=== PATIENT | male | born 1945 | race Caucasian/White ===

== ENCOUNTER → 2017-02-17 | Outpatient (CLI) | payer OTHER, MEDICARE ==
--- NOTE | 2017-02-17 13:18 | DIAGNOSTIC IMAGING REPORT ---
ULTRASOUND KIDNEYS AND BLADDER CLINICAL HISTORY: Renal cyst. COMPARISON STUDY: KUB dated 02/14/2016. TECHNIQUE: Real-time, grayscale, and color flow sonography of the kidneys and bladder is performed. Images are reviewed in the transverse and longitudinal planes. FINDINGS: Kidneys: The kidneys there is remarkable cortical atrophy. The right kidney measures 14.1 x 7.3 x 7.0 cm and the left kidney measures 13.3 x 7.4 x 7.5 cm. There is no hydronephrosis. No shadowing renal calculi are identified. There are numerous bilateral renal cysts. The largest on the left measures up to 2.7 cm. The largest on the right measures up to 3.3 cm. A lower pole cyst on the right measures up to 2.2 cm and contains a small internal calcification. There is no sonographic evidence of solid mass lesion. No perinephric fluid is identified. Bladder: The prostate gland is enlarged and heterogeneous. There is median lobe hypertrophy. The bladder is largely decompressed. The bladder wall appears thickened and trabeculated suggesting chronic outlet obstruction. Bilateral ureteral jets were seen. IMPRESSION: 1. The kidneys demonstrate mild cortical atrophy and are without hydronephrosis. 2. Bilateral renal cysts as above. 3. Prostatomegaly with evidence of chronic bladder outlet obstruction. Electronically signed by: Sebastián Tsang M.D. 02/17/2017 1:17 PM Dictated Date/Time: 02/17/2017 1:14 PM
[2017-02-17 17:10] LABS: BLOOD UREA NITROGEN 13 mg/dl (7-18); CREATININE 0.83 mg/dl (0.60-1.40)
== END | disposition home or self-care (01) ==
LOC: C.ULTR 12:07
PROVIDERS: ATTEND Urology
DX: N28.1 Cyst of kidney, acquired (principal); N40.0 Benign prostatic hyperplasia without lower urinary tract symptoms

== ENCOUNTER 2022-04-05 15:38 | Inpatient (IN) ==
[2022-04-05] MEDS ORDERED: SODIUM CHLORIDE 0.9% 1000ML 1,000 ML IV ONE (15:47)
[2022-04-05 16:34] LABS: Basophils # (auto) 0.04 K/uL (0-0.2); Basophils % (auto) 0.5 %; Eosinophils # (auto) 0.06 K/uL (0-0.50); Eosinophils % (auto) 0.7 %; Hematocrit (blood only) 38.4 % (42.0-52.0); Hemoglobin 13.1 g/dl (14.0-18.0); Immature Granulocytes # (auto) 0.04 K/uL (0.01-0.20); Immature Granulocytes % (auto) 0.5 %; Lymphocytes # (auto) 0.45 K/uL (1.2-3.4); Lymphocytes % (auto) 5.6 %; Mean Corpuscular Hemoglobin 32.1 pg (25.0-34.0); Mean Corpuscular Hgb Conc 34.1 g/dL (32.0-36.0); Mean Corpuscular Volume 94.1 fL (80.0-100.0); Mean Platelet Volume 10.3 fL (9.4-12.4); Monocytes # (auto) 0.73 K/uL (0.11-0.59); Neutrophils # (auto) 6.75 K/uL (1.40-6.50); Neutrophils % (auto) 83.7 %; Platelet Count 209 K/uL (130-400); RDW Coefficient of Variation 15.8 % (11.5-14.5); RDW Standard Deviation 54.3 fL (36.4-46.3); Red Blood Count 4.08 M/uL (4.70-6.10); White Blood Count 8.07 K/ul (4.8-10.8)
[2022-04-05 16:48] LABS: BUN Creatinine Ratio 23.1 (10-20); Bilirubin Direct 9.5 mg/dl (0-0.2); Bilirubin,Total 16.2 mg/dl (0.2-1.0); Calcium 9.7 mg/dl (8.5-10.1); Creatinine Clr Calc Pharmacy 67.4 ml/min; Est GFR (Non-African American) 69.9 ml/min; Globulin 3.9 gm/dl (2.5-4.0); Magnesium 1.8 mg/dl (1.7-2.4); Potassium 3.9 mmol/L (3.5-5.1); Total Protein 7.9 gm/dl (6.0-8.3)
[2022-04-05] MEDS ORDERED: ONDANSETRON INJ 2 MG/ML 2 ML VIAL IV STA (16:53)
[2022-04-05] MEDS ORDERED: FAMOTIDINE 20MG IV PUSH 20 MG/5 ML SYR IV STA (16:53)
[2022-04-05 16:58] LABS: INR 1.2 (0.9-1.1); Prothrombin Time 12.4 Seconds (9.0-12.0)
--- NOTE | 2022-04-05 17:20 | CT Scan Report ---
CT KUB medical assistant dermatology CLINICAL HISTORY: Pancreatic cancer, Jaundice ?stent/duct obstruction COMPARISON STUDY: CT of the abdomen and pelvis July 17, 2021. FINDINGS: A large amount of barium within the colon and rectum is noted. Streak artifact from this ba rium would significantly compromise visualization of the abdomen and pelvis. A CT of the abdomen and pelvis could be obtained in several days once the barium has passed. No evidence for a bowel obstruct ion. IMPRESSION: Large amount of residual barium within the colon and rectum from upper GI performed yeste rday. CT in several days once the barium has passed could be obtained. ACT 112: Negative or not required by law. Electronically signed by: Guilherme Sanchez M.D. 04/05/2022 5:17 PM
--- NOTE | 2022-04-05 20:56 | Emergency Department Note ---
Impression & Plan Pancreatic cancer, Jaundice, Transaminitis ED Provider Note NAME: YOVANY MERCEDES AGE: 76 SEX: M ARRIVES VIA: Walk-In INFORMANT: Patient ED PROVIDER(S): Toño Gardner MD CHIEF COMPLAINT: Pancreatic cancer, jaundice, referred. PLAN: Disposition: Admit MEDICAL DECISION MAKING: The patient is a pleasant 76-year-old gentleman with a past medical history of pancreatic cancer with history of biliary stent per his report who presents to the emergency department referred by his [facility] oncology office for evaluation of biliary obstruction after developing jaundice over the past several days. He denies any fevers, chills, cough, congestion. He reports inte rmittent nausea but denies vomiting. Per records, the patient is not currently receiving treatment for the past several months. Moreover if the patient were to decline then hospice/palliative care would be considered. On arrival the patient is fatigued appearing but no acute distress, afebrile wi th stable vital signs. He appears clinically dry. He is overtly jaundiced. Abdomen is nontender. WBC and platelets within normal limits. H/H 13.1/38.4 improved from prior. INR 1.2. Chemistry without metabolic acidosis. Total bilirubin 16.2 with direct bilirubin 9.5, AST 228, ALT 196 and alk phos 800 all elevated from prior values from 2020 without more recent values for comparison. Lipase is unable to be resulted due to icterus. COVID-19 RNA, ERIK test was negative. CT of the abdomen pelvis was ordered initially for evaluation however due to residual barium from recent [facility], [facility] was unable to be performed. Gallbladder ultrasound subsequently ordered and per preliminary [facility] report demonstrates CBD dilated to 17 mm. Portal vein is patent. Case was discussed with GI on-call, Dr. Richardson. Reviewed recommendations and agrees patient may be admitted here for further management at this time. Recommends prophylactic antibiotics. Patient agrees with plan for admission. Case was discussed with Dr. Hickey, [facility] hospitalist who will evaluate the patient for admission. Luis Enrique ordered. Triage Nursing notes reviewed and agree them. Prior/outside medical records reviewed Vital Signs: reviewed Differential diagnosis: Appendicitis, testicular torsion, infections, diverticulitis, UTI, obstruction, mesenteric ischemia, aortic pathology, inflammatory bowel disease, renal colic, PUD, pancreatitis, biliary pathology, hernia, volvulus, constipation, as well as other pathologies. ER treatment provided: See below. Diagnostics interpreted by me: ECG: Sinus rhythm with first-degree AV block, 85 bpm, no ectopy, no overt ST elevation depression, QTc 442, QRS 80 Cardiac Monitoring: An order for continuous cardiac monitoring was placed and demonstrated Sinus rhythm with first-degree AV block, 85 bpm, no ectopy. Laboratory studies: See below Imaging studies: See below Consultation(s): GI on-call, Dr. Richardson. Dr. Hickey, [facility] hospitalist. HPI: The patient is a pleasant 76-year-old gentleman with a past medical history of pancreatic cancer with history of biliary stent per his report who presents to the emergency department referred by his [facility] oncology office for marianna luation of biliary obstruction after developing jaundice over the past several days. He denies any fevers, chills, cough, congestion. He reports intermittent nausea but denies vomiting. Per records, the patient is not currently receiving treatment for the past several months. Moreover if the patient were to decline then hospice/palliative care would be considered ROS: See above HPI for pertinent positives & negatives. A total of 10 systems reviewed and were otherwise negative. VITALS:See Below PHYSICAL EXAMINATION: GENERAL: Awake, alert, fatigued-appearing, in no distress HENT: Normocephalic, atraumatic. Oropharynx with dry mucous membranes and otherwise unremarkable. EYES: Normal conjunctiva. Sclera are icteric. NECK: Supple. No nuchal rigidity. FROM. No JVD. RESPIRATORY: Clear to auscultation. CARDIAC: Regular rate, normal rhythm. Extremities warm and well perfused. Pulses equal. ABDOMEN: Soft, non-distended. No tenderness to palpation. No rebound or guarding. No masses. RECTAL: Deferred. MUSCULOSKELETAL: Chest examination reveals no tenderness. The back is symmetrical on inspection without obvious abnormality. There is no CVA tenderness to palpation. No joint edema. LOWER EXTREMITIES: Calves are equal size bilaterally and non-tender. No edema. No discoloration. NEURO: Normal sensorium. No sensory or motor deficits noted. SKIN: Moderate-severe jaundice noted. Toño Gardner MD Past Med/Surg History Medical History Anxiety Arthritis Arthritis BPH (benign prostatic hyperplasia) Bronchitis resolved CAD (coronary artery disease) follows Dr. Bian[facility]. S/P failed 2017 stress test with subsequent cardiac cath showing multi-vessel dz 20-50% stenosis with no intervention performed. Medically managed, baseline CCS class II. Chronic obstructive pulmonary disease doesnt use res inh Cyst of kidney, acquired Edema wears compression stockings daily Exposure to Agent [place] in service Gastric ulcer GERD (gastroesophageal reflux disease) hx Hearing loss Heart trouble Hyperlipidemia Hypertension Kidney stones passed on own Lung nodules Pancreatic cancer dx 2020, now for access port for chemo. Post traumatic stress disorder PSVT (paroxysmal supraventricular tachycardia) Long runs of SVT noted on Holter monitor 03/19/2020. Patient reports continued palpitations at 04/13/2020 cardio visit. Lopressor dose increased from 12.5 mg twice daily to 25 mg twice daily. Sleep apnea 02 2 LPM at HS Surgical History History of arthroscopy left knee History of cardiac cath x2 last one 2016 [facility], no stents History of cataract surgery bilat History of colonoscopy with polypectomy History of esophagogastroduodenoscopy (EGD) History of hand surgery right index finger History of incision and drainage to abdominal wound after appendectomy History of mandibular surgery History of tooth extraction Hx of abdominal surgery for possible cancer, was benign Hx of appendectomy Hx of cholecystectomy Hx of vascular surgery varicose veins bilat lower legs Family History Father Cardiac disorder Diabetes Mother Hypertension Skin cancer Diabetes Social History Smoking Status: Former smoker Tobacco Type: Cigarettes Second Hand Exposure: Yes; Hx Alcohol Use: No Hx Substance Use: No Preferred Language: Singaporean Communication Ability: Effective Dental Assistant Medical Assistant Required: No Beliefs That Will Affect Care: None marital status: Current Living Situation: Spouse current occupational status: retired Feels Safe at Home: Yes Safety Concerns: Feels Safe At This Time Assistive Devices: Cane, Glasses and Hearing Aid - Bilateral Allergies Allergies Allergy/AdvReac Type Severity Reaction Status Date / Time aspirin Allergy Unknown stomach Verified 04/05/22 21:25 upset erythromycin base Allergy Unknown upset Verified 04/05/22 21:25 stomach Home Meds Home Medications Medication Instructions Recorded Confirmed buspirone 5 mg tablet 7.5 mg PO BID 04/05/22 04/05/22 doxycycline hyclate 100 mg tablet 100 mg PO BID 04/05/22 04/05/22 famotidine 40 mg tablet 40 mg PO BID 04/05/22 04/05/22 finasteride 5 mg tablet 5 mg PO DAILY 04/05/22 04/05/22 folic acid 800 mcg tablet 800 mcg PO DAILY 04/05/22 04/05/22 isosorbide mononitrate 10 mg tablet 30 mg PO QAM 04/05/22 04/05/22 metformin 500 mg tablet 500 mg PO BID 04/05/22 04/05/22 oxycodone 5 mg tablet 5 mg PO Q4 PRN Pain 04/05/22 04/05/22 pantoprazole 40 mg tablet,delayed 40 mg PO BID 04/05/22 04/05/22 release polyethylene glycol 3350 17 17 g PO HS 04/05/22 04/05/22 gram/dose oral powder tamsulosin 0.4 mg capsule (Flomax) 0.4 mg PO DAILY 04/05/22 04/05/22 Results & Data (ED) Vital Signs Vital Signs - 24 hr 04/05/22 15:40 04/05/22 16:09 04/05/22 17:21 Temperature 36.8 C Temperature Source Skin Pulse Rate 99 H 86 Pulse Rate [Apical] 79 Respiratory Rate 20 20 Respiratory Effort / Characteristics Non-Labored Spontaneous Non-Labored Spontaneous Respiratory Depth Normal Normal Respiratory Pattern Regular Blood Pressure 95/63 L Blood Pressure [Right Arm] 141/86 H Blood Pressure Mean 73 Blood Pressure Mean [Right Arm] 104 Blood Pressure Position [Right Arm] Lying Pulse Oximetry 95 94 Oxygen Delivery Method Room Air Room Air Sepsis Recent Fever Within 48 Hours No Sepsis New/Unexplained Change in Mental Status N/A Sepsis Action Taken by Nursing No Action Required 04/05/22 18:00 04/05/22 19:55 04/05/22 20:21 Temperature Temperature Source Pulse Rate Pulse Rate [Apical] 78 87 Respiratory Rate 21 18 Respiratory Effort / Characteristics Non-Labored Spontaneous Respiratory Depth Normal Respiratory Pattern Regular Blood Pressure Blood Pressure [Right Arm] 125/70 92/59 L Blood Pressure Mean Blood Pressure Mean [Right Arm] 88 70 Blood Pressure Position [Right Arm] Lying Pulse Oximetry 94 95 Oxygen Delivery Method Room Air Room Air Room Air Sepsis Recent Fever Within 48 Hours Sepsis New/Unexplained Change in Mental Status Sepsis Action Taken by Nursing 04/05/22 22:00 Temperature Temperature Source Pulse Rate Pulse Rate [Apical] 86 Respiratory Rate 16 Respiratory Effort / Characteristics Respiratory Depth Respiratory Pattern Blood Pressure Blood Pressure [Right Arm] 102/64 Blood Pressure Mean Blood Pressure Mean [Right Arm] 76 Blood Pressure Position [Right Arm] Pulse Oximetry 95 Oxygen Delivery Method Room Air Sepsis Recent Fever Within 48 Hours Sepsis New/Unexplained Change in Mental Status Sepsis Action Taken by Nursing Laboratory Data Attestation: I reviewed the patient's lab results. 04/05/22 16:07 04/05/22 16:07 Lab Results 04/05/22 04/05/22 04/05/22 Range/Units 16:07 16:07 16:07 WBC 8.07 (4.8-10.8) K/ul RBC 4.08 L (4.70-6.10) M/uL Hgb 13.1 L (14.0-18.0) g/dl Hct 38.4 L (42.0-52.0) % MCV 94.1 (80.0-100.0) fL MCH 32.1 (25.0-34.0) pg MCHC 34.1 (32.0-36.0) g/dL RDW Std Deviation 54.3 H (36.4-46.3) fL RDW Coeff of Dave 15.8 H (11.5-14.5) % Plt Count 209 (130-400) K/uL MPV 10.3 (9.4-12.4) fL Immature Gran % (Auto) 0.5 % Neut % (Auto) 83.7 % Lymph % (Auto) 5.6 % Kern % (Auto) 9.0 % Eos % (Auto) 0.7 % Baso % (Auto) 0.5 % Neut # (Auto) 6.75 H (1.40-6.50) K/uL Lymph # (Auto) 0.45 L (1.2-3.4) K/uL Kern # (Auto) 0.73 H (0.11-0.59) K/uL Eos # (Auto) 0.06 (0-0.50) K/uL Baso # (Auto) 0.04 (0-0.2) K/uL Immature Gran # (Auto) 0.04 (0.01-0.20) K/uL PT 12.4 H (9.0-12.0) Seconds INR 1.2 H (0.9-1.1) Sodium 135 L (136-145) mmol/L Potassium 3.9 (3.5-5.1) mmol/L Chloride 99 (98-107) mmol/L Carbon Dioxide 28 (21-32) mmol/L Anion Gap 8 (3-11) BUN 24 H (6-23) mg/dl Creatinine 1.04 (0.6-1.4) mg/dl Est Cr Clr Drug Dosing 67.4 ml/min Est GFR ( Amer) 81.0 ml/min Est GFR (Non-Af Amer) 69.9 ml/min BUN/Creatinine Ratio 23.1 H (10-20) Glucose 142 H (70-99(Fasting)) mg/dl Calcium 9.7 (8.5-10.1) mg/dl Magnesium 1.8 (1.7-2.4) mg/dl Total Bilirubin 16.2 H (0.2-1.0) mg/dl Direct Bilirubin 9.5 H (0-0.2) mg/dl AST 220 H (13-39) U/L ALT 196 H (7-52) U/L Alkaline Phosphatase 803 H (34-104) U/L Total Protein 7.9 (6.0-8.3) gm/dl Albumin 4.0 (3.4-5.0) gm/dl Globulin 3.9 (2.5-4.0) gm/dl Albumin/Globulin Ratio 1.0 (0.9-2) Lipase (11-82) U/L SARS-CoV-2, RNA, NAAT (NEGATIVE) 04/05/22 Range/Units Unknown WBC (4.8-10.8) K/ul RBC (4.70-6.10) M/uL Hgb (14.0-18.0) g/dl Hct (42.0-52.0) % MCV (80.0-100.0) fL MCH (25.0-34.0) pg MCHC (32.0-36.0) g/dL RDW Std Deviation (36.4-46.3) fL RDW Coeff of Dave (11.5-14.5) % Plt Count (130-400) K/uL MPV (9.4-12.4) fL Immature Gran % (Auto) % Neut % (Auto) % Lymph % (Auto) % Kern % (Auto) % Eos % (Auto) % Baso % (Auto) % Neut # (Auto) (1.40-6.50) K/uL Lymph # (Auto) (1.2-3.4) K/uL Kern # (Auto) (0.11-0.59) K/uL Eos # (Auto) (0-0.50) K/uL Baso # (Auto) (0-0.2) K/uL Immature Gran # (Auto) (0.01-0.20) K/uL PT (9.0-12.0) Seconds INR (0.9-1.1) Sodium (136-145) mmol/L Potassium (3.5-5.1) mmol/L Chloride (98-107) mmol/L Carbon Dioxide (21-32) mmol/L Anion Gap (3-11) BUN (6-23) mg/dl Creatinine (0.6-1.4) mg/dl Est Cr Clr Drug Dosing ml/min Est GFR ( Amer) ml/min Est GFR (Non-Af Amer) ml/min BUN/Creatinine Ratio (10-20) Glucose (70-99(Fasting)) mg/dl Calcium (8.5-10.1) mg/dl Magnesium (1.7-2.4) mg/dl Total Bilirubin (0.2-1.0) mg/dl Direct Bilirubin (0-0.2) mg/dl AST (13-39) U/L ALT (7-52) U/L Alkaline Phosphatase (34-104) U/L Total Protein (6.0-8.3) gm/dl Albumin (3.4-5.0) gm/dl Globulin (2.5-4.0) gm/dl Albumin/Globulin Ratio (0.9-2) Lipase (11-82) U/L SARS-CoV-2, RNA, NAAT NEGATIVE (NEGATIVE) Administered Medications Sodium Chloride (Nss 1000ml) 1,000 mls @ 200 mls/hr IV .Q5H ONE Stop: 04/06/22 05:15 Last Admin: 04/06/22 01:35 Dose: 200 mls/hr Documented By: Vancomycin HCl 1,750 mg/ (Sodium Chloride) 535 mls @ 200 mls/hr IV NOW ONE; Protocol Stop: 04/06/22 05:10 Last Admin: 04/06/22 03:04 Dose: 200 mls/hr Documented By: Insulin Aspart (Insulin Aspart Per Unit) 0 units SC ACHS CINDA Stop: 05/06/22 01:30 Last Admin: 04/06/22 01:46 Dose: Not Given Documented By: Oxycodone HCl (Oxycodone Hcl Ir 5 Mg Tab (Immediate Release)) 5 - 10 mg PO QID PRN PRN Reason: Pain Stop: 04/20/22 00:15 Last Admin: 04/06/22 02:05 Dose: 5 mg Documented By: Discontinued Medications Sodium Chloride (Nss 1000ml) 1,000 mls @ 999 mls/hr IV .Q1H1M ONE Stop: 04/05/22 16:47 Last Infusion: 04/05/22 17:52 Dose: 0 mls/hr Documented By: Admin: 04/05/22 16:33 Dose: 999 mls/hr Documented By: KULDEEP Famotidine (Pepcid 20mg Iv Push) 20 mg in 5 mls @ 2.5 mls/min IV NOW STA Stop: 04/05/22 16:54 Last Admin: 04/05/22 17:27 Dose: 2.5 mls/min Documented By: KULDEEP Piperacillin Sod/Tazobactam Sod (Zosyn) 4.5 gm in 120 mls @ 240 mls/hr IV NOW ONE Stop: 04/05/22 23:46 Last Infusion: 04/06/22 01:03 Dose: 0 mls/hr Documented By: Infusion: 04/06/22 00:16 Dose: 240 mls/hr Documented By: Infusion: 04/05/22 23:33 Dose: 0 mls/hr Documented By: Admin: 04/05/22 23:32 Dose: 240 mls/hr Documented By: NOEL Ondansetron HCl (Ondansetron Inj 2 Mg/Ml 2 Ml Vial) 4 mg IV NOW STA Stop: 04/05/22 16:54 Last Admin: 02/25/23 17:26 Dose: Not Given Documented By: BEZ Imaging Data Radiologist's Impression: [place] Operator Film 04/05/22 16:53 CT KUB field interviewer CLINICAL HISTORY: Pancreatic cancer, Jaundice ?stent/duct obstruction COMPARISON STUDY: CT of the abdomen and pelvis July 17, 2021. FINDINGS: A large amount of barium within the colon and rectum is noted. Streak artifact from this barium would significantly compromise visualization of the abdomen and pelvis. A CT of the abdomen and pelvis could be obtained in several days once the barium has passed. No evidence for a bowel obstruction. IMPRESSION: Large amount of residual barium within the colon and rectum from upper GI performed yesterday. CT in several days once the barium has passed could be obtained. ACT 112: Negative or not required by law. Electronically signed by: Guilherme Sanchez M.D. 04/05/2022 5:17 PM [facility] US GALLBLADDER: Comparison: None. The pancreas is not very well seen. Questionable complex structure measuring 4.3 x 3.9 x 3.4 cm near the pancreatic head. This correlates with known history of pancreatic carcinoma. The liver measures 19 cm, unremarkable. Normal hepatopedal flow through the portal vein. Status post cholecystectomy with mild biliary distention. Common bile duct measures 17 mm. Right kidney reveals no hydronephrosis. There is a 4.2 x 3.7 x 4.0 cm exophytic simple cyst in the middle pole. Second simple cyst within the middle pole measu ring 1.2 x 0.8 cm. No free fluid. Radiologist: Reshma Butler MD Study ready at 21:44 and initial results transmitted at 22:19 Discharge Plan Visit Data Chief Complaint: Illness Stated Complaint: JAUNDICE, CANCER PT ED Provider: Toño Gardner Discharge Problem: Pancreatic cancer, Jaundice, Transaminitis Patient Disposition: Admitted As Inpatient Discharge Instructions Interventions: ED Discharge Assessment Last Done: 04/06/22 01:10
[2022-04-05] MEDS ORDERED: PIPERACILLIN/TAZOBACTAM 4.5 GM/120 ML BAG IV ONE (23:17)
--- NOTE | 2022-04-06 00:10 | History & Physical Report ---
Date of Service April 06, 2022 Assessment & Plan (1) Hypotension: Plan: Mild hypotension secondary to hypovolemia secondary to decreased p.o. intake Multifactorial: Obstructive jaundice secondary to biliary tract obstruction from progressive pancreatic cancer status postchemotherapy, no overt sepsis for now Complicated UTI, history of BPH (oxacillin resistant coagulase-negative staph species from urine CS 03/25 status post incomplete treatment with doxycycline) hx CAD PSVT as per records COPD, lung status at baseline hyperlipidemia on statin Rx DM 2 on oral medications, well-controlled as of outpatient hemoglobin A1c of 6.1 last January 2021 chronic anemia, hemoglobin better than baseline likely secondary to hemoconcentration (baseline hemoglobin 11-12) past tobacco/alcohol abuse Medical telemetry given borderline BP IVF, check lactic acid GI consult Re: Obstructive jaundice (ER provider already in touch with Dr. Richardson recommends clear liquid diet and antibiotic prophylaxis for cholangitis for now.) Defer timing of imaging work-up to GI service (ER provider held off on CT imaging abdomen pelvis with IV contrast imaging given patient's oral barium contrast intake for outpatient UGI series 2 days ago.) May benefit from inpatient Palliative care consultation to discuss goals of care once imaging results in given progressive disease. (Poor prognosis as per and recommendations for home hospice if with further clinical deterioration as per outpatient Oncology note 2 days ago.) IV Vancomycin, ID consult for oxacillin resistant coagulase-negative staph species complicated UTI Basal bolus insulin, ISS BG goal 1 10-1 40, carb count coverage, update hemoglobin A1c DVT prophylaxis. Lovenox subcu Full code Text document was generated using [employer] voice recognition software. It may contain grammatical or spelling errors. Kindly contact undersigned for clarification of any documentation item in question. History of Present Illness Chief Complaint: Abnormal blood work, sent by oncologist Primary Care Provider: [facility] History obtained from patient and records. Medical history significant for CAD, PSVT, COPD, hypertension, hyperlipidemia, pancreatic cancer status post chemotherapy, DM 2 on oral medications, GERD, chronic anemia (baseline hemoglobin 11-12), BPH, past tobacco/alcohol abuse. Patient found to have pancreatic mass on outpatient CT abdomen pelvis March 2020. Pancreatic adenocarcinoma on biopsy last May 2020. Nonspecific sclerotic focus proximal right femur as per outpatient oncology note. Chemotherapy on hold since January 2022 after [facility] confinement last January 2022 for diverticulitis. Patient went for outpatient upper GI series x-rays with barium 04/04 a.m. as per [place] [facility] specialist request on outpatient follow-up visit. 2 weeks ago, patient seen at [facility] urologist office for follow-up visit for BPH. Patient complaining of dysuria symptoms. Urine CS grew coagulase negative staph species, oxacillin resistant. Patient only able to take first dose of Doxycycline course prescribed by prov ider yesterday. Patient noted worsening generalized abdominal discomfort over the last 4 days. Associated jaundice and weight loss. No constipation, diarrhea symptoms. Some bloating without emesis. No chest pain, no SOB, No fever, no chills. Patient seen at [facility] oncologist office on follow-up visit 2 days ago. Abnormal lab work noted Total bilirubin 10.3, AST 214, ALT 194, alk phos 730, CA 19-9 level markedly up at 2100. Patient directed to ER by oncologist. SBP 90s upon arrival at the ER. IV Zosyn administered at the ER. 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 Allergies Allergy/AdvReac Type Severity Reaction Status Date / Time aspirin Allergy Unknown stomach Verified 04/05/22 21:25 upset erythromycin base Allergy Unknown upset Verified 04/05/22 21:25 stomach Home Medications Medication Instructions Recorded Confirmed Type buspirone 5 mg tablet 7.5 mg PO BID 04/05/22 04/05/22 History doxycycline hyclate 100 mg tablet 100 mg PO BID 04/05/22 04/05/22 History famotidine 40 mg tablet 40 mg PO BID 04/05/22 04/05/22 History finasteride 5 mg tablet 5 mg PO DAILY 04/05/22 04/05/22 History folic acid 800 mcg tablet 800 mcg PO DAILY 04/05/22 04/05/22 History isosorbide mononitrate 10 mg tablet 30 mg PO QAM 04/05/22 04/05/22 History metformin 500 mg tablet 500 mg PO BID 04/05/22 04/05/22 History oxycodone 5 mg tablet 5 mg PO Q4 PRN Pain 04/05/22 04/05/22 History pantoprazole 40 mg tablet,delayed 40 mg PO BID 04/05/22 04/05/22 History release polyethylene glycol 3350 17 17 g PO HS 04/05/22 04/05/22 History gram/dose oral powder tamsulosin 0.4 mg capsule (Flomax) 0.4 mg PO DAILY 04/05/22 04/05/22 History Past Med/Surg History Medical History Anxiety Arthritis Arthritis BPH (benign prostatic hyperplasia) Bronchitis resolved CAD (coronary artery disease) follows Dr. Bianca [facility]. S/P failed 2016 stress test with subsequent cardiac cath showing multi-vessel dz 20-50% stenosis with no intervention performed. Medically managed, baseline CCS class II. Chronic obstructive pulmonary disease doesnt use res inh Cyst of kidney, acquired Edema wears compression stockings daily Exposure to Agent [place] in service Gastric ulcer GERD (gastroesophageal reflux disease) hx Hearing loss Heart trouble Hyperlipidemia Hypertension Kidney stones passed on own Lung nodules Pancreatic cancer dx 2020, now for access port for chemo. Post traumatic stress disorder PSVT (paroxysmal supraventricular tachycardia) Long runs of SVT noted on Holter monitor 03/19/2020. Patient reports continued palpitations at 04/13/2020 cardio visit. Lopressor dose increased from 12.5 mg twice daily to 25 mg twice daily. Sleep apnea 02 2 LPM at HS Surgical History History of arthroscopy left knee [facility] History of cataract surgery bilat History of colonoscopy with polypectomy History of esophagogastroduodenoscopy (EGD) History of hand surgery right index finger History of incision and drainage to abdominal wound after appendectomy History of mandibular surgery History of tooth extraction Hx of abdominal surgery for possible cancer, was benign Hx of appendectomy Hx of cholecystectomy Hx of vascular surgery varicose veins bilat lower legs Family History Father Cardiac disorder Diabetes Mother Hypertension Skin cancer Diabetes Social History Smoking Status: Former smoker Tobacco Type: Cigarettes Second Hand Exposure: Yes; Hx Alcohol Use: No Hx Substance Use: No Preferred Language: Upper Sorbian Communication Ability: Effective 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: No Beliefs That Will Affect Care: None marital status: Current Living Situation: Spouse current occupational status: retired Feels Safe at Home: Yes Safety Concerns: Feels Safe At This Time Assistive Devices: Cane, Glasses and Hearing Aid - Bilateral Review of Systems Review of Systems: As per HPI, all other systems reviewed and negative Physical Exam Physical Exam: GENERAL: Comfortable, pleasant, slightly hard of hearing, no respiratory distress SKIN: Jaundiced, warm HEENT: Pale palpebral conjunctivae, no ptosis, dry buccal mucosa NECK : Supple, no tenderness CHEST : CTA, no tenderness HEART : RRR, no obvious murmurs ABDOMEN: Abdominal distention, epigastric tenderness EXTREMITIES : Minimal LE swelling, no LE tenderness, no other conspicuous deformities noted NEUROLOGIC : Coherent, no facial asymmetry, no other gross focality Results & Data Results & Data ([facility]) Vital Signs (Past 12 Hours) Vital Signs Temp Pulse Pulse Resp BP BP Pulse Ox 04/05/22 22:00 86 16 102/64 95 04/05/22 20:21 87 18 92/59 L 95 04/05/22 19:55 04/05/22 18:00 78 21 125/70 94 04/05/22 17:21 79 20 141/86 H 94 04/05/22 16:09 86 04/05/22 15:40 36.8 C 99 H 20 95/63 L 95 O2 Del Method 04/05/22 22:00 Room Air 04/05/22 20:21 Room Air 04/05/22 19:55 Room Air 04/05/22 18:00 Room Air 04/05/22 17:21 Room Air 04/05/22 16:09 04/05/22 15:40 Room Air Laboratory Results Laboratory Results WBC 8.07 K/ul (4.8-10.8) 04/05/22 16:07 RBC 4.08 M/uL (4.70-6.10) L 04/05/22 16:07 Hgb 13.1 g/dl (14.0-18.0) L 04/05/22 16:07 Hct 38.4 % (42.0-52.0) L 04/05/22 16:07 MCV 94.1 fL (80.0-100.0) 04/05/22 16:07 MCH 32.1 pg (25.0-34.0) 04/05/22 16:07 MCHC 34.1 g/dL (32.0-36.0) 04/05/22 16:07 RDW Std Deviation 54.3 fL (36.4-46.3) H 04/05/22 16:07 RDW Coeff of Dave 15.8 % (11.5-14.5) H 04/05/22 16:07 Plt Count 209 K/uL (130-400) 04/05/22 16:07 MPV 10.3 fL (9.4-12.4) 04/05/22 16:07 Immature Gran % (Auto) 0.5 % 04/05/22 16:07 Neut % (Auto) 83.7 % 04/05/22 16:07 Lymph % (Auto) 5.6 % 04/05/22 16:07 [place] % (Auto) 9.0 % 04/05/22 16:07 Eos % (Auto) 0.7 % 04/05/22 16:07 Baso % (Auto) 0.5 % 04/05/22 16:07 Neut # (Auto) 6.75 K/uL (1.40-6.50) H 04/05/22 16:07 Lymph # (Auto) 0.45 K/uL (1.2-3.4) L 04/05/22 16:07 [place] # (Auto) 0.73 K/uL (0.11-0.59) H 04/05/22 16:07 Eos # (Auto) 0.06 K/uL (0-0.50) 04/05/22 16:07 Baso # (Auto) 0.04 K/uL (0-0.2) 04/05/22 16:07 Immature Gran # (Auto) 0.04 K/uL (0.01-0.20) 04/05/22 16:07 PT 12.4 Seconds (9.0-12.0) H 04/05/22 16:07 INR 1.2 (0.9-1.1) H 04/05/22 16:07 Sodium 135 mmol/L (136-145) L 04/05/22 16:07 Potassium 3.9 mmol/L (3.5-5.1) 04/05/22 16:07 Chloride 99 mmol/L (98-107) 04/05/22 16:07 Carbon Dioxide 28 mmol/L (21-32) 04/05/22 16:07 Anion Gap 8 (3-11) 04/05/22 16:07 BUN 24 mg/dl (6-23) H 04/05/22 16:07 Creatinine 1.04 mg/dl (0.6-1.4) 04/05/22 16:07 Est Cr Clr Drug Dosing 67.4 ml/min 04/05/22 16:07 Est GFR ( Amer) 81.0 ml/min 04/05/22 16:07 Est GFR (Non-Af Amer) 69.9 ml/min 04/05/22 16:07 BUN/Creatinine Ratio 23.1 (10-20) H 04/05/22 16:07 Glucose 142 mg/dl (70-99(Fasting)) H 04/05/22 16:07 Calcium 9.7 mg/dl (8.5-10.1) 04/05/22 16:07 Magnesium 1.8 mg/dl (1.7-2.4) 04/05/22 16:07 Total Bilirubin 16.2 mg/dl (0.2-1.0) H 04/05/22 16:07 Direct Bilirubin 9.5 mg/dl (0-0.2) H 04/05/22 16:07 AST 220 U/L (13-39) H 04/05/22 16:07 ALT 196 U/L (7-52) H 04/05/22 16:07 Alkaline Phosphatase 803 U/L (34-104) H 04/05/22 16:07 Total Protein 7.9 gm/dl (6.0-8.3) 04/05/22 16:07 Albumin 4.0 gm/dl (3.4-5.0) 04/05/22 16:07 Globulin 3.9 gm/dl (2.5-4.0) 04/05/22 16:07 Albumin/Globulin Ratio 1.0 (0.9-2) 04/05/22 16:07 Lipase U/L (11-82) 04/05/22 16:07 SARS-CoV-2, RNA, NAAT NEGATIVE (NEGATIVE) 04/05/22 Unknown 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 FINDINGS: A large amount of barium within the colon and rectum is noted. Streak artifact from this barium would significantly compromise visualization of the abdomen and pelvis. A CT of the abdomen and pelvis could be obtained in several days once the barium has passed. No evidence for a bowel obstruction. IMPRESSION: Large amount of residual barium within the colon and rectum from upper GI performed yesterday. CT in several days once the barium has passed could be obtained. ACT 112: Negative or not required by law. Electronically signed by: Guilherme Sanchez M.D. 04/05/2022 5:17 PM Diagnostic Findings Gallbladder ultrasound initial read: The pancreas is not very well seen. Questionable complex structure measuring 4.3 x 3.9 x 3.4 cm near the pancreatic head. This correlates with known history of pancreatic carcinoma. The liver measures 19 cm, unremarkable. Normal hepatopedal flow through the portal vein. Status post cholecystectomy with mild biliary distention. Common bile duct measures 17 mm. Right kidney reveals no hydronephrosis. There is a 4.2 x 3.7 x 4.0 cm exophytic simple cyst in the middle pole. Second simple cyst within the middle pole measuring 1.2 x 0.8 cm. No free fluid. EKG as per my interpretation :Rate 85, NSR, normal axis, 1 AVB, no ischemia (1) Hypotension Hypotension type: unspecified hypotension type Qualified Code(s): I95.9 - Hypotension, unspecified
[2022-04-06] MEDS ORDERED: PROMETHAZINE HCL 12.5 MG in SODIUM CHLORIDE 0.9% 50 ML IV PRN (00:16)
[2022-04-06] MEDS ORDERED: SODIUM CHLORIDE 0.9% 1000ML 1,000 ML IV ONE (00:16)
[2022-04-06] MEDS ORDERED: MoRPHine SULFATE 2 MG/ML CARP IV PRN (00:16)
[2022-04-06] MEDS ORDERED: GLUCOSE 40% GEL 15 GM TUBE PO PRN (01:31)
[2022-04-06] MEDS ORDERED: GLUCAGON FOR INJ 1 MG VIAL SQ PRN (01:31)
[2022-04-06] MEDS ORDERED: ACETAMINOPHEN 325 MG TAB PO PRN (01:31)
[2022-04-06] MEDS ORDERED: DEXTROSE 50% 50 ML SYRINGE IV PRN (01:31)
[2022-04-06] MEDS ORDERED: GLUCOSE 10 TAB/TUBE PO PRN (01:31)
[2022-04-06] MEDS ORDERED: CARBOHYDRATES FOR HYPOGLYCEMIA PO PRN (01:31)
[2022-04-06] MEDS: INSULIN ASPART PER UNIT SC SCH ×5 (01:46→20:20)
[2022-04-06] MEDS: oxyCODONE HCL IR 5 MG TAB (IMMEDIATE RELEASE) PO PRN (02:05)
[2022-04-06] MEDS ORDERED: VANCOMYCIN CONSULT ACTIVE PRN (02:10)
[2022-04-06] MEDS ORDERED: VANCOMYCIN HCL 1 MG in SODIUM CHLORIDE 0.9% 250 ML IV STA (02:10)
[2022-04-06] MEDS ORDERED: VANCOMYCIN HCL 1,750 MG in SODIUM CHLORIDE 0.9% 500 ML IV ONE (02:30)
[2022-04-06 04:13] LABS: Appearance Urine Clear (Clear); Bacteria Urine Automated Negative (Negative); Blood Urine 2+ (Negative); Color Urine Dark Yellow; Epithelial Cell Urine Auto 0-5 /lpf (0-5); Glucose Urine UA Negative (Negative); Ketones Urine Trace (Negative); Leukocyte Esterase Urine 1+ (Negative); Nitrite Urine Positive (Negative); Protein Urine Trace (Negative); Urobilinogen Urine Negative (Negative); pH Urine 5.5 (4.5-7.5)
[2022-04-06 04:37] LABS: Bilirubin Urine 3+ (Negative)
[2022-04-06 05:49] LABS: Basophils # (auto) 0.04 K/uL (0-0.2); Basophils % (auto) 0.5 %; Eosinophils # (auto) 0.18 K/uL (0-0.50); Eosinophils % (auto) 2.3 %; Hematocrit (blood only) 34.7 % (42.0-52.0); Hemoglobin 12.1 g/dl (14.0-18.0); Immature Granulocytes # (auto) 0.04 K/uL (0.01-0.20); Immature Granulocytes % (auto) 0.5 %; Lymphocytes # (auto) 0.69 K/uL (1.2-3.4); Lymphocytes % (auto) 8.6 %; Mean Corpuscular Hemoglobin 31.8 pg (25.0-34.0); Mean Corpuscular Hgb Conc 34.9 g/dL (32.0-36.0); Mean Corpuscular Volume 91.3 fL (80.0-100.0); Mean Platelet Volume 9.8 fL (9.4-12.4); Monocytes # (auto) 0.75 K/uL (0.11-0.59); Monocytes % (auto) 9.4 %; Neutrophils % (auto) 78.7 %; Platelet Count 177 K/uL (130-400); RDW Standard Deviation 52.9 fL (36.4-46.3)
[2022-04-06] MEDS: PIPERACILLIN/TAZOBACTAM 3.375 GM in DEXTROSE 5% 100 ML IV SCH ×3 (05:52→21:43)
[2022-04-06 05:56] LABS: Albumin Level 3.5 gm/dl (3.4-5.0); Bilirubin,Total 16.9 mg/dl (0.2-1.0); Potassium 3.9 mmol/L (3.5-5.1)
[2022-04-06 06:02] LABS: Albumin Globulin Ratio 1.1 (0.9-2); BUN Creatinine Ratio 23.5 (10-20); Creatinine Clr Calc Pharmacy 82.4 ml/min; Est GFR (African American) 98.8 ml/min; Est GFR (Non-African American) 85.2 ml/min; Globulin 3.3 gm/dl (2.5-4.0); Total Protein 6.8 gm/dl (6.0-8.3)
[2022-04-06] MEDS: PANTOprazole 40 MG TAB PO SCH ×2 (07:55→19:52)
[2022-04-06] MEDS: ISOSORBIDE MONO EXTENDED REL 30 MG TABCR PO SCH (07:55)
[2022-04-06] MEDS: TAMSULOSIN HCL 0.4 MG CAP PO SCH (07:55)
[2022-04-06] MEDS: FINASTERIDE 5 MG TAB PO SCH (07:55)
[2022-04-06] MEDS: busPIRone 7.5 MG TAB PO SCH ×2 (07:55→19:52)
[2022-04-06] MEDS: ENOXAPARIN INJ 40 MG/0.4 ML SYR SQ SCH (07:56)
--- NOTE | 2022-04-06 08:00 | Ultrasound Report ---
ABDOMINAL ULTRASOUND, RIGHT UPPER QUADRANT HISTORY: Pancreatic cancer, jaundice eval stent/duct obstru. COMPARISON: Abdomen and pelvis CT 07/17/2021. FINDINGS: Pancreas: There is a 4 cm hypoechoic mass within the pancreatic head corresponding to the patient's k nown pancreatic malignancy. Liver: No hepatic masses. Intrahepatic bile duct dilatation is noted. The main portal vein is patent. Gallbladder: The gallbladder is surgically absent. CBD: Dilated up to 1.6 cm. The indwelling stent appears patent. Right kidney: Right renal cysts are again noted. IMPRESSION: 1. Redemonstration of the patient's known 4 cm pancreatic head mass. 2. Bile duct dilatation with an indwelling common bile duct stent which appears patent. ACT 112: Negative or not required by law. Electronically signed by: Slava Murray M.D. 04/06/2022 7:57 AM
[2022-04-06] MEDS: LANTUS PER UNIT CHARGE SQ SCH (08:04)
[2022-04-06] MEDS ORDERED: NON-FORMULARY MEDICATION (Doxycycline Hyclate 100 mg Tablet) PO SCH (09:00)
[2022-04-06] MEDS ORDERED: FOLIC ACID 400 MCG TAB PO SCH (09:00)
[2022-04-06] MEDS ORDERED: VANCOMYCIN HCL 750 MG in SODIUM CHLORIDE 0.9% 250 ML IV SCH ×2 (09:00→10:00)
--- NOTE | 2022-04-06 10:36 | Pharmacy Report ---
Pharmacy PK ABX Note - Date of Service April 06, 2022 - Assessment and Plan Assessment * 76 year old M receiving Zosyn and vancomycin for prophylaxis for cholangitis (per GI) and oxacillin-resistant coag negative Staph UTI. Patient was prescribed doxycycline as an outpatient for urinary coverage, but this was an incomplete course (? patient possibly only took one dose) * Pertinent microbiologic data includes: urine culture from 03/25 oxacillin- resistant coag negative Staph * SCr improved slightly this AM since admission overnight Plan Vancomycin * Loading dose: 1750 mg IV x 1 (already given) * Maintenance dose: 1000 mg IV every 12 hours * Regimen is predicted to achieve target AUC/VANESSA of 400-600 mg/L.hr * Random level ordered for 04/07 w AM labs Pharmacy will continue to follow and will adjust dose/frequency as necessary. Thank you. Pharmacy has transitioned to AUC monitoring for vancomycin. AUC/VANESSA is the preferred PK/PD target and is associated with decreased risk of nephrotoxicity compared to traditional trough targets.
--- NOTE | 2022-04-06 10:44 | Electrocardiogram Report ---
Test Reason : Blood Pressure : / mmHG Vent. Rate : 085 BPM Atrial Rate : 085 BPM P-R Int : 232 ms QRS Dur : 080 ms QT Int : 372 ms P-R-T Axes : -14 047 036 degrees QTc Int : 442 ms Sinus rhythm with 1st degree A-V block Anterior infarct (cited on or before 12-OCT-2020) Abnormal ECG When compared with ECG of 12-OCT-2020 15:40, Vent. rate has increased BY 31 BPM T wave inversion no longer evident in Anterior leads Confirmed by Nolan Ware ([id number]) on 04/06/2022 10:44:06 AM Referred By: Maged Adler Confirmed By:Nolan Ware
[2022-04-06 11:19] LABS: Estimated Average Glucose 140 mg/dl; Hemoglobin A1C 6.5 % (4.5-5.6)
--- NOTE | 2022-04-06 12:14 | Hospitalist Progress Note ---
Date of Service April 06, 2022 Assessment & Plan (1) Hypotension: Plan: Complicated urinary tract infection H/O BPH Urine Cx from 03/25: oxacillin resistant coagulase-negative staph species:Incomplete treatment with doxycycline Blood, urine culture pending Lactic acid levels normalized with IV fluids Empirically on vancomycin, Zosyn ID consulted Obstructive jaundice Secondary to biliary tract obstruction due to progressive pancreatic cancer S/P Chemotherapy ? Cholangitis --CT KUB:Large amount of residual barium within the colon and rectum from upper GI performed yesterday. CT in several days once the barium has passed could be obtained. --Gall Bladder USD:Redemonstration of the patient's known 4 cm pancreatic head mass. Bile duct dilatation with an indwelling common bile duct stent which appears patent. Follows with Dr. Maged Adler oncology as outpatient Continue empiric antibiotics as able Pain control Avoid nephrotoxic agents as able GI consulted Poor prognosis Monitor LFTs DM II HbA1C: 6.5 Hold oral meds Continue Insulin per protocol Monitor BGs Other Chronic conditions CAD PSVT HLP Tobacco/alcohol abuse COPD No signs of exacerbation continue home meds DVT Px: Lovenox SQ Code Status Full code Admission and Anticipated Discharge Date Admission Date: April 06, 2022 Subjective Patient is seen and examined at bedside States having generalized abdominal pain Feels hungry Chronic generalized itching Reports dysuria Denies any chest pain, dyspnea, dizziness, nausea, vomiting Review of Systems Review of Systems: All systems reviewed & are unremarkable except as noted in Subjective Physical Exam Physical Exam: Physical Exam: Vitals signs as noted above General Appearance:Moderately built and nourished, chronically appearing, no apparent distress Head: normocephalic, Atraumatic Eyes: normal inspection, EOMI,+Icteric Neck: supple, Trachea midline Respiratory/Chest: Normal breath sounds, CTA, No accessory muscle use Cardiovascular: S1, S2, No murmur Abdomen/GI:Soft, distended, generalized tender, Bowel sounds present Extremities/Musculoskeletal:normal inspection, Trace edema Neurologic/Psych:AAOX3, grossly no focal neurological deficits Skin: normal color, warm, +Jaundice Results & Data Results & Data ([facility]) Vital Signs (Past 12 Hours) Vital Signs Temp Pulse Pulse Resp BP BP Pulse Ox 04/06/22 11:42 36.8 C 62 16 125/75 93 04/06/22 09:27 04/06/22 08:12 37.0 C 71 16 138/85 95 04/06/22 07:19 69 04/06/22 02:30 70 04/06/22 01:47 04/06/22 01:31 36.6 C 77 18 137/83 95 O2 Del Method 04/06/22 11:42 Room Air 04/06/22 09:27 Room Air 04/06/22 08:12 Room Air 04/06/22 07:19 04/06/22 02:30 04/06/22 01:47 Room Air 04/06/22 01:31 Room Air Laboratory Results Short CBC 04/05/22 04/06/22 Range/Units 16:07 05:31 WBC 8.07 8.00 (4.8-10.8) K/ul Hgb 13.1 L 12.1 L (14.0-18.0) g/dl Hct 38.4 L 34.7 L (42.0-52.0) % Plt Count 209 177 (130-400) K/uL BMP 04/05/22 04/06/22 16:07 05:31 Sodium 135 L 136 Potassium 3.9 3.9 Chloride 99 103 Carbon Dioxide 28 26 BUN 24 H 20 Creatinine 1.04 0.85 Glucose 142 H 108 H Calcium 9.7 9.0 Liver Function 04/05/22 04/06/22 Range/Units 16:07 05:31 Total Bilirubin 16.2 H 16.9 H (0.2-1.0) mg/dl Direct Bilirubin 9.5 H (0-0.2) mg/dl AST 220 H 201 H (13-39) U/L ALT 196 H 178 H (7-52) U/L Alkaline Phosphatase 803 H 786 H (34-104) U/L Albumin 4.0 3.5 (3.4-5.0) gm/dl Urine 04/06/22 Range/Units 03:15 Urine Color Dark Yellow Urine Appearance Clear (Clear) Urine pH 5.5 (4.5-7.5) Ur Specific [place] 1.030 (1.000-1.030) Urine Protein Trace H (Negative) Urine Glucose (UA) Negative (Negative) (1) Hypotension Hypotension type: unspecified hypotension type Qualified Code(s): I95.9 - Hypotension, unspecified
[2022-04-06] MEDS: FAMOTIDINE 40 MG TABLET PO SCH ×2 (12:16→19:53)
--- NOTE | 2022-04-06 14:04 | Communication Note ---
Date of Service: April 06, 2022 Karson Church presented to the ER last night with worsening jaundice and dark urine. He has a known history of a pancreatic head mass, and has been seen by Dr. Prasad in the past for biliary duct stent. CT abd/pelvis could not be performed due to retained barium. RUQ US showed biliary ductal dilation. I advised ER to admit the patient, keep NPO, and place on IV Abx. Case was also discussed with Dr. Prasad and he will plan on ERCP tomorrow. I discussed this with the family and they agreed with this plan. Patient was added to the OR schedule for Dr. Prasad. If you have any further questions, please do not hesitate to contact me. Thanks. DO Lissa Cui [facility]
[2022-04-06] MEDS: FOLIC ACID 400 MCG TAB PO SCH (17:06)
[2022-04-06] MEDS: POLYETHYLENE (MIRALAX) 17 GM PACK PO SCH (19:53)
[2022-04-06] MEDS ORDERED: VANCOMYCIN HCL 1,000 MG in SODIUM CHLORIDE 0.9% 250 ML IV SCH (21:00)
[2022-04-07] MEDS: PIPERACILLIN/TAZOBACTAM 3.375 GM in DEXTROSE 5% 100 ML IV SCH ×3 (05:58→22:37)
[2022-04-07 07:27] LABS: Hematocrit (blood only) 33.8 % (42.0-52.0); Hemoglobin 11.9 g/dl (14.0-18.0); Mean Corpuscular Hemoglobin 31.6 pg (25.0-34.0); Mean Corpuscular Hgb Conc 35.2 g/dL (32.0-36.0); Mean Corpuscular Volume 89.7 fL (80.0-100.0); Mean Platelet Volume 10.4 fL (9.4-12.4); Platelet Count 174 K/uL (130-400); RDW Coefficient of Variation 16.4 % (11.5-14.5); RDW Standard Deviation 53.4 fL (36.4-46.3); Red Blood Count 3.77 M/uL (4.70-6.10); White Blood Count 7.39 K/ul (4.8-10.8)
[2022-04-07 07:59] LABS: Albumin Level 3.2 gm/dl (3.4-5.0); BUN Creatinine Ratio 15.2 (10-20); Bilirubin,Total 18.2 mg/dl (0.2-1.0); Calcium 8.9 mg/dl (8.5-10.1); Creatinine Clr Calc Pharmacy 88.7 ml/min; Est GFR (African American) 101.8 ml/min; Est GFR (Non-African American) 87.8 ml/min; Magnesium 1.7 mg/dl (1.7-2.4); Potassium 3.7 mmol/L (3.5-5.1); Total Protein 6.3 gm/dl (6.0-8.3)
--- NOTE | 2022-04-07 07:59 | Gastrointestinal Consultation ---
Date of Consultation April 07, 2022 Assessment & Plan (1) Pancreatic cancer: (2) Jaundice: Plan ERCP being arranged for this afternoon. Pt is being kept NPO. Being covered for possible cholangitis w Sadiesyn. Overall pt is currently stable but has a large pancreas mass, not tolerating chemo well and surgery offered possible procedure only if responded to chemo - but no clear response to chemo. Had a sherice discussion with the pt this morning. He is aware of overall poor prognosis and tell me that his goal is to live to his 79th birthday. Addendum at 9:50AM: Due to scheduling issues (earliest the endoscopy unit has nurses to assist w ERCP would be 4:30PM or later today), the ERCP was moved to tomorrow and plans are for 3PM (first add on in the OR). Pt made aware. He was given a full liquid diet today (he preferred vs solids due to ongoing nausea/vomiting), and will be NPO after midnight. Supervising Physician Co-Signing Physician Notes Attg add: I in terviewed and examined pt, reviewd chart and labs. Pt without complaints today. He was going to have ERCP today, but this was cancelled due to staffing issues. Will plan ERCP tomorrow. History of Present Illness Reason for Consultation: Obstructive Jaundice Requesting Physician: Dr. Up Attending Physician: Madi Goldman MD History of Present Illness Mr. Karson Church is 76 [facility]x of CAD, PSVT, COPD, DM2, Chronic anemia baseline 11-12 who was dx'ed w locally advanced pancreatic head adenocarcinoma. Dx'ed in 2020, chemo managed by Dr. Adler, saw Surgical oncology in 2020 w plans for re-eval after chemo, but had a 5m lapse in chemo in 2021 due to PSVT and when restarted, didn't tolerate well (N/V, UTI, overall poor health status), most recent chemo in Jan 2022. In Oct 2021, he underwent ERCP w stenting for obstructive jaundice w placement of a metal,uncovered stent. When seen in oncology on 04/04, he was jaundiced, labs confirmed hyperbilirubinemia and he was directed to present to [facility] for eval and tx. On arrival, no leukocytosis or fevers, T Bili elevated, today 18. US w 4cm pancreas mass and dilated bile duct w a stent in place. He is seen and examine d while he is resting in bed. He is awake, alert, oriented, able to provide a detailed hx. His abd is moderately tender and mildly distended and he tells me this is his baseline. Allergies Allergy/AdvReac Type Severity Reaction Status Date / Time aspirin Allergy Unknown stomach Verified 04/05/22 21:25 upset erythromycin base Allergy Unknown upset Verified 04/05/22 21:25 stomach Home Medications Medication Instructions Recorded Confirmed Type buspirone 5 mg tablet 7.5 mg PO BID 04/05/22 04/05/22 History doxycycline hyclate 100 mg tablet 100 mg PO BID 04/05/22 04/05/22 History famotidine 40 mg tablet 40 mg PO BID 04/05/22 04/05/22 History finasteride 5 mg tablet 5 mg PO DAILY 04/05/22 04/05/22 History folic acid 800 mcg tablet 800 mcg PO DAILY 04/05/22 04/05/22 History isosorbide mononitrate 10 mg tablet 30 mg PO QAM 04/05/22 04/05/22 History metformin 500 mg tablet 500 mg PO BID 04/05/22 04/05/22 History oxycodone 5 mg tablet 5 mg PO Q4 PRN Pain 04/05/22 04/05/22 History pantoprazole 40 mg tablet,delayed 40 mg PO BID 04/05/22 04/05/22 History release polyethylene glycol 3350 17 17 g PO HS 04/05/22 04/05/22 History gram/dose oral powder tamsulosin 0.4 mg capsule (Flomax) 0.4 mg PO DAILY 04/05/22 04/05/22 History Patient History Medical History Anxiety Arthritis Arthritis BPH (benign prostatic hyperplasia) Bronchitis resolved CAD (coronary artery disease) follows Dr. Bianca Huff [facility]iology. S/P failed 2016 stress test with subsequent cardiac cath showing multi-vessel dz 20-50% stenosis with no intervention performed. Medically managed, baseline CCS class II. Chronic obstructive pulmonary disease doesnt use res inh Cyst of kidney, acquired Edema wears compression stockings daily Exposure to Agent [place] in service Gastric ulcer GERD (gastroesophageal reflux disease) hx Hearing loss Heart trouble Hyperlipidemia Hypertension Kidney stones passed on own Lung nodules Pancreatic cancer dx 2020, now for access port for chemo. Post traumatic stress disorder PSVT (paroxysmal supraventricular tachycardia) Long runs of SVT noted on Holter monitor 03/19/2020. Patient reports continued palpitations at 04/13/2020 cardio visit. Lopressor dose increased from 12.5 mg twice daily to 25 mg twice daily. Sleep apnea 02 2 LPM at HS Surgical History History of arthroscopy left knee History of cardiac cath x2 last one 2017 [facility] [place], no stents History of cataract surgery bilat History of colonoscopy with polypectomy History of esophagogastroduodenoscopy (EGD) History of hand surgery right index finger History of incision and drainage to abdominal wound after appendectomy History of mandibular surgery History of tooth extraction Hx of abdominal surgery for possible cancer, was benign Hx of appendectomy Hx of cholecystectomy Hx of vascular surgery varicose veins bilat lower legs Family History Father Cardiac disorder Diabetes Mother Hypertension Skin cancer Diabetes Social History Smoking Status: Former smoker Tobacco Type: Cigarettes Second Hand Exposure: Yes; Hx Alcohol Use: No Hx Substance Use: No Preferred Language: Cameroonian Communication Ability: Effective Student Education Specialist Required: No Beliefs That Will Affect Care: None marital status: Current Living Situation: Spouse current occupational status: retired Feels Safe at Home: Yes Safety Concerns: Feels Safe At This Time Assistive Devices: Cane and Walker Review of Systems Review of Systems: ROS: Gen: + weakness, no fevers, + gradual continued weight loss Eyes: + icterus; No eye redness, or pain, no recent vision changes Resp: + chronic cough, not recently worsened. No SOB. Cardio: No palpitations/irregular beats, no chest pain GI: + as per HPI : + burning on urination - tell me chronic, from chemo Skin: + jaundice, + diffuse itching Physical Exam Constitutional: WD/WN, vitals as above Eyes: + icterus; PEARLA ENMT: external ear and nose normal, oropharynx normal Neck: trachea midline, no thyromegaly Respiratory: normal respiratory effort, lungs clear to auscultation Cardiovascular: RRR, no murmur, no edema Gastrointestinal (Abdomen): Mild distention/not taunt; moderately tender over the entire abdomen, + hypoactive BS present Skin: no rashes, warm and dry Neurologic: PERRL, EOMI, accommodation nl, no face palsy, no dysarthria Psychiatric: A+Ox3, euthymic affect Lymphatic: no cervical or axillary lymphadenopathy Results & Data ([facility]) Vital Signs (Past 12 Hours) Vital Signs Temp Pulse Pulse Resp BP Pulse Ox O2 Del Method 04/07/22 07:28 87 04/07/22 03:31 37 C 66 18 125/77 97 Room Air 04/06/22 22:00 71 04/06/22 23:11 37.3 C 70 16 128/79 97 Room Air Laboratory Results T Bili 18.2, AST 215, ALT 181, ALk Phos 834, WBC 7.34, Hb 11.9, Hct 33.8, Plts 174, PT 12.4, INR 1.2, Na 134, K 3.7, Cl 101, CO2 26, BUn 12, C4 0.79, glucose 117. Diagnostic Findings US 04/05/22: 1. Redemonstration of the patient's known 4 cm pancreatic head mass. 2. Bile duct dilatation with an indwelling common bile duct stent which appears patent.
[2022-04-07] MEDS: INSULIN ASPART PER UNIT SC SCH ×4 (08:04→20:17)
[2022-04-07] MEDS: FINASTERIDE 5 MG TAB PO SCH (08:06)
[2022-04-07] MEDS: PANTOprazole 40 MG TAB PO SCH ×2 (08:06→19:47)
[2022-04-07] MEDS: ENOXAPARIN INJ 40 MG/0.4 ML SYR SQ SCH (08:06)
[2022-04-07] MEDS: TAMSULOSIN HCL 0.4 MG CAP PO SCH (08:06)
[2022-04-07] MEDS: busPIRone 7.5 MG TAB PO SCH ×2 (08:06→19:47)
[2022-04-07] MEDS: LANTUS PER UNIT CHARGE SQ SCH (08:06)
[2022-04-07] MEDS: ISOSORBIDE MONO EXTENDED REL 30 MG TABCR PO SCH (08:06)
[2022-04-07] MEDS: oxyCODONE HCL IR 5 MG TAB (IMMEDIATE RELEASE) PO PRN (08:10)
[2022-04-07 08:12] LABS: Bilirubin Direct 12.9 mg/dl (0-0.2)
[2022-04-07] MEDS ORDERED: VANCOMYCIN LEVEL ONE (08:30)
[2022-04-07] MEDS: VANCOMYCIN HCL 1,500 MG in SODIUM CHLORIDE 0.9% 500 ML IV SCH ×2 (09:18→19:50)
[2022-04-07] MEDS: FAMOTIDINE 40 MG TABLET PO SCH ×2 (12:04→19:47)
--- NOTE | 2022-04-07 13:04 | Pharmacy Report ---
Pharmacy PK ABX Note - Date of Service April 07, 2022 - Assessment and Plan Assessment 04/07: ERCP scheduled for 04/08 at 3PM. Cultures currently negative. Level this morning predicts current dosing will be suptherapeutic. Will increase dose to be within target AUC range 04/06 * 76 year old M receiving Zosyn and vancomycin for prophylaxis for cholangitis (per GI) and oxacillin-resistant coag negative Staph UTI. Patient was prescribed doxycycline as an outpatient for urinary coverage, but this was an incomplete course (? patient possibly only took one dose) * Pertinent microbiologic data includes: urine culture from 03/25 oxacillin- resistant coag negative Staph * SCr improved slightly this AM since admission overnight Plan 04/07: adjust dose to 1500 mg q12H. Will obtain random level tomorrow AM to assist with dosing. 04/06: Vancomycin * Loading dose: 1750 mg IV x 1 (already given) * Maintenance dose: 1000 mg IV every 12 hours * Regimen is predicted to achieve target AUC/VANESSA of 400-600 mg/L.hr * Random level ordered for 04/07 w AM labs Pharmacy will continue to follow and will adjust dose/frequency as necessary. Thank you. Pharmacy has transitioned to AUC monitoring for vancomycin. AUC/VANESSA is the preferred PK/PD target and is associated with decreased risk of nephrotoxicity compared to traditional trough targets.
--- NOTE | 2022-04-07 16:57 | Hospitalist Progress Note ---
Date of Service April 07, 2022 Assessment & Plan (1) Hypotension: Plan: Complicated urinary tract infection H/O BPH Urine Cx from 03/25: oxacillin resistant coagulase-negative staph species:Incomplete treatment with doxycycline Blood, urine culture negative to date Lactic acid levels normalized with IV fluids Empirically on vancomycin, Zosyn ID consulted--pending input Obstructive jaundice Secondary to biliary tract obstruction due to progressive pancreatic cancer S/P Chemotherapy ? Cholangitis --CT KUB:Large amount of residual barium within the colon and rectum from upper GI performed yesterday. CT in several days once the barium has passed could be obtained. --Gall Bladder USD:Redemonstration of the patient's known 4 cm pancreatic head mass. Bile duct dilatation with an indwelling common bile duct stent which appears patent. Follows with Dr. Maged Adler oncology as outpatient Continue empiric antibiotics as able Pain control Avoid nephrotoxic agents as able GI consulted Poor prognosis Monitor LFTs ERCP rescheduled due to scheduling issues N.p.o. after midnight DM II HbA1C: 6.5 Hold oral meds Continue Insulin per protocol Monitor BGs Other Chronic conditions CAD PSVT HLP Tobacco/alcohol abuse COPD No signs of exacerbation continue home meds DVT Px: Lovenox SQ Code Status Full code Admission and Anticipated Discharge Date Admission Date: April 06, 2022 Subjective Patient is seen and examined at bedside No new complaints ERCP rescheduled due to scheduling issues Still has abdominal pain and dysuria Denies any chest pain, dyspnea, dizziness, nausea, vomiting Review of Systems Review of Systems: All systems reviewed & are unremarkable except as noted in Subjective Physical Exam Physical Exam: Physical Exam: Vitals signs as noted above General Appearance:Moderately built and nourished, chronically appearing, no apparent distress Head: normocephalic, Atraumatic Eyes: normal inspection, EOMI,+Icteric Neck: supple, Trachea midline Respiratory/Chest: Normal breath sounds, CTA, No accessory muscle use Cardiovascular: S1, S2, No murmur Abdomen/GI:Soft, distended, generalized tender, Bowel sounds present Extremities/Musculoskeletal:normal inspection, Trace edema Neurologic/Psych:AAOX3, grossly no focal neurological deficits Skin: normal color, warm, +Jaundice Results & Data Results & Data ([facility]) Vital Signs (Past 12 Hours) Vital Signs Temp Pulse Pulse Resp BP Pulse Ox O2 Del Method 04/07/22 16:13 67 04/07/22 15:48 36.5 C 67 20 147/81 H 92 Room Air 04/07/22 11:01 36.7 C 71 20 97/66 L 93 Room Air 04/07/22 10:32 Room Air 04/07/22 08:07 36.7 C 71 20 120/79 94 Room Air 04/07/22 07:28 87 Laboratory Results Short CBC 04/07/22 Range/Units 06:42 WBC 7.39 (4.8-10.8) K/ul Hgb 11.9 L (14.0-18.0) g/dl Hct 33.8 L (42.0-52.0) % Plt Count 174 (130-400) K/uL BMP 04/07/22 06:42 Sodium 134 L Potassium 3.7 Chloride 101 Carbon Dioxide 26 BUN 12 Creatinine 0.79 Glucose 117 H Calcium 8.9 Liver Function 04/07/22 Range/Units 06:42 Total Bilirubin 18.2 H (0.2-1.0) mg/dl Direct Bilirubin 12.9 H (0-0.2) mg/dl AST 215 H (13-39) U/L ALT 181 H (7-52) U/L Alkaline Phosphatase 834 H (34-104) U/L Albumin 3.2 L (3.4-5.0) gm/dl (1) Hypotension Hypotension type: unspecified hypotension type Qualified Code(s): I95.9 - Hypotension, unspecified
[2022-04-07] MEDS: FOLIC ACID 400 MCG TAB PO SCH (17:10)
[2022-04-07] MEDS: POLYETHYLENE (MIRALAX) 17 GM PACK PO SCH (19:47)
[2022-04-08] MEDS: PIPERACILLIN/TAZOBACTAM 3.375 GM in DEXTROSE 5% 100 ML IV SCH ×3 (05:58→23:21)
[2022-04-08 06:48] LABS: Hematocrit (blood only) 32.4 % (42.0-52.0); Hemoglobin 12.1 g/dl (14.0-18.0); Mean Corpuscular Hemoglobin 32.2 pg (25.0-34.0); Mean Corpuscular Hgb Conc 37.3 g/dL (32.0-36.0); Mean Corpuscular Volume 86.2 fL (80.0-100.0); Mean Platelet Volume 10.3 fL (9.4-12.4); Platelet Count 183 K/uL (130-400); RDW Coefficient of Variation 17.1 % (11.5-14.5); RDW Standard Deviation 52.2 fL (36.4-46.3); Red Blood Count 3.76 M/uL (4.70-6.10); White Blood Count 7.94 K/ul (4.8-10.8)
[2022-04-08 07:17] LABS: BUN Creatinine Ratio 13.4 (10-20); Calcium 8.8 mg/dl (8.5-10.1); Creatinine Clr Calc Pharmacy 93.3 ml/min; Est GFR (African American) 100.3 ml/min; Est GFR (Non-African American) 86.5 ml/min; Potassium 3.8 mmol/L (3.5-5.1)
[2022-04-08 07:23] LABS: Albumin Level 3.1 gm/dl (3.4-5.0); Bilirubin,Total 20.6 mg/dl (0.2-1.0); Total Protein 6.1 gm/dl (6.0-8.3)
[2022-04-08] MEDS: ISOSORBIDE MONO EXTENDED REL 30 MG TABCR PO SCH (07:48)
[2022-04-08] MEDS: PANTOprazole 40 MG TAB PO SCH ×2 (07:48→20:14)
[2022-04-08] MEDS: busPIRone 7.5 MG TAB PO SCH ×2 (07:48→20:15)
[2022-04-08] MEDS: TAMSULOSIN HCL 0.4 MG CAP PO SCH (07:49)
[2022-04-08] MEDS: FINASTERIDE 5 MG TAB PO SCH (07:49)
[2022-04-08] MEDS: ENOXAPARIN INJ 40 MG/0.4 ML SYR SQ SCH ×2 (07:49→07:52)
[2022-04-08] MEDS: LANTUS PER UNIT CHARGE SQ SCH (07:53)
[2022-04-08] MEDS: INSULIN ASPART PER UNIT SC SCH ×4 (07:53→21:46)
--- NOTE | 2022-04-08 08:27 | Anesthesiology Consultation ---
Date of Service April 08, 2022 Assessment & Plan Chart Review Chart Review: Acceptable Risk for Surgery and Patient NOT seen in Pre Admission Testing History Surgery Operation Date: 04/08/22 07:00 Proposed Procedures p Endoscopic Retrograde Cholangiopancreatogram - Mc Prasad MD Height/Weight Height: 6 ft Weight: 95.4 kg Allergies Allergy/AdvReac Type Severity Reaction Status Date / Time aspirin Allergy Unknown stomach Verified 04/05/22 21:25 upset erythromycin base Allergy Unknown upset Verified 04/05/22 21:25 stomach Medications Home Medications Medication Instructions Recorded Confirmed Last Taken buspirone 5 mg tablet 7.5 mg PO BID 04/05/22 04/05/22 Unknown doxycycline hyclate 100 mg tablet 100 mg PO BID 04/05/22 04/05/22 Unknown famotidine 40 mg tablet 40 mg PO BID 04/05/22 04/05/22 Unknown finasteride 5 mg tablet 5 mg PO DAILY 04/05/22 04/05/22 Unknown folic acid 800 mcg tablet 800 mcg PO DAILY 04/05/22 04/05/22 Unknown isosorbide mononitrate 10 mg tablet 30 mg PO QAM 04/05/22 04/05/22 Unknown metformin 500 mg tablet 500 mg PO BID 04/05/22 04/05/22 Unknown oxycodone 5 mg tablet 5 mg PO Q4 PRN Pain 04/05/22 04/05/22 Unknown pantoprazole 40 mg tablet,delayed 40 mg PO BID 04/05/22 04/05/22 Unknown release polyethylene glycol 3350 17 17 g PO HS 04/05/22 04/05/22 Unknown gram/dose oral powder tamsulosin 0.4 mg capsule (Flomax) 0.4 mg PO DAILY 04/05/22 04/05/22 Unknown Active Medications Generic Name Dose Route Start Last Admin Trade Name Freq PRN Reason Stop Dose Admin Buspirone HCl 7.5 mg 04/06/22 09:00 04/08/22 07:48 Buspirone 7.5 Mg Tab PO 05/06/22 08:59 7.5 mg BID CINDA Administration Enoxaparin Sodium 40 mg 04/06/22 09:00 04/08/22 07:52 Enoxaparin Inj 40 Mg/0.4 Ml Syr SQ 05/06/22 08:59 Not Given QAM CINDA Famotidine 40 mg 04/06/22 11:30 04/07/22 19:47 Famotidine 40 Mg Tablet PO 05/06/22 11:29 40 mg BID@1130,2100 [facility] Administration Finasteride 5 mg 04/06/22 09:00 04/08/22 07:49 Finasteride 5 Mg Tab PO 05/06/22 08:59 5 mg DAILY CINDA Administration Folic Acid 800 mcg 04/06/22 17:00 04/07/22 17:10 Folic Acid 400 Mcg Tab PO 05/06/22 16:59 800 mcg DAILY@1700 [facility] Administration Piperacillin Sod/Tazobactam 115 mls @ 28.75 mls/hr 04/06/22 06:00 04/08/22 05:58 Sod 3.375 gm/ Dextrose IV 04/16/22 05:59 28.8 mls/hr Q8H [facility] Administration Protocol Vancomycin HCl 1,500 mg/ 530 mls @ 200 mls/hr 04/07/22 09:00 04/07/22 22:28 Sodium Chloride IV 04/17/22 08:59 Infused Q12H [facility] Infusion Protocol Insulin Aspart 0 units 04/06/22 01:31 04/08/22 07:53 Insulin Aspart Per Unit SC 05/06/22 01:30 Not Given [facility] Insulin Glargine 5 units 04/06/22 09:00 04/08/22 07:53 Lantus Per Unit Charge SQ 05/06/22 08:59 Not Given DAILY [facility] Isosorbide Mononitrate 30 mg 04/06/22 09:00 04/08/22 07:48 Isosorbide [place] Extended Rel 30 Mg Tabcr PO 05/06/22 08:59 30 mg QAM [facility] Administration Oxycodone HCl 5 - 10 mg 04/06/22 00:16 04/07/22 08:10 Oxycodone Hcl Ir 5 Mg Tab (Immediate Release) PO 04/20/22 00:15 10 mg QID PRN Administration Pain Pantoprazole Sodium 40 mg 04/06/22 09:00 04/08/22 07:48 Pantoprazole 40 Mg Tab PO 05/06/22 08:59 40 mg BID CINDA Administration Polyethylene Glycol 17 gm 04/06/22 21:00 04/07/22 19:47 Polyethylene (Miralax) 17 Gm Pack PO 05/06/22 20:59 Not Given HS CINDA Tamsulosin HCl 0.4 mg 04/06/22 09:00 04/08/22 07:49 Tamsulosin Hcl 0.4 Mg Cap PO 05/06/22 08:59 0.4 mg DAILY CINDA Administration Past Medical History Medical History Anxiety Arthritis Arthritis BPH (benign prostatic hyperplasia) Bronchitis resolved CAD (coronary artery disease) follows Dr. Bianca Huff [facility]iology. S/P failed 2017 stress test with subsequent cardiac cath showing multi-vessel dz 20-50% stenosis with no intervention performed. Medically managed, baseline CCS class II. Chronic obstructive pulmonary disease doesnt use res inh Cyst of kidney, acquired Edema wears compression stockings daily Exposure to Agent [place] in service Gastric ulcer GERD (gastroesophageal reflux disease) hx Hearing loss Heart trouble Hyperlipidemia Hypertension Kidney stones passed on own Lung nodules Pancreatic cancer dx 2020, now for access port for chemo. Post traumatic stress disorder PSVT (paroxysmal supraventricular tachycardia) Long runs of SVT noted on Holter monitor 03/19/2020. Patient reports continued palpitations at 04/13/2020 cardio visit. Lopressor dose increased from 12.5 mg twice daily to 25 mg twice daily. Sleep apnea 02 2 LPM at HS Past Family History Family History Father Cardiac disorder Diabetes Mother Hypertension Skin cancer Diabetes Past Surgical History Surgical History History of arthroscopy left knee History of cardiac cath x2 last one [address] [facility] [place], no stents History of cataract surgery bilat History of colonoscopy with polypectomy History of esophagogastroduodenoscopy (EGD) History of hand surgery right index finger History of incision and drainage to abdominal wound after appendectomy History of mandibular surgery History of tooth extraction Hx of abdominal surgery for possible cancer, was benign Hx of appendectomy Hx of cholecystectomy Hx of vascular surgery varicose veins bilat lower legs Social History Smoking Status: Former smoker tobacco type: cigarettes Hx Alcohol Use: No Hx Substance Use: No substance use type: does not use Physical Exam Vital Signs Last Vital Signs Temp 36.7 C 04/08/22 07:36 Pulse 73 04/08/22 07:36 Resp 20 04/08/22 07:36 BP 132/80 04/08/22 07:36 Pulse Ox 94 04/08/22 07:36 O2 Del Method Room Air 04/08/22 07:36 Testing Laboratory Results 04/08/22 06:33 04/08/22 06:33 PT 12.4 Seconds (9.0-12.0) H 04/05/22 16:07 INR 1.2 (0.9-1.1) H 04/05/22 16:07 Hemoglobin A1c 6.5 % (4.5-5.6) H 04/06/22 00:07 Urine Color Dark Yellow 04/06/22 03:15 Urine Appearance Clear (Clear) 04/06/22 03:15 Urine pH 5.5 (4.5-7.5) 04/06/22 03:15 Ur Specific [place] 1.030 (1.000-1.030) 04/06/22 03:15 Urine Protein Trace (Negative) H 04/06/22 03:15 Urine Glucose (UA) Negative (Negative) 04/06/22 03:15 Urine Ketones Trace (Negative) H 04/06/22 03:15 Urine Nitrite Positive (Negative) A 04/06/22 03:15 Ur Leukocyte Esterase 1+ (Negative) H 04/06/22 03:15 Urine WBC (Auto) 1-5 /hpf (0-5) 04/06/22 03:15 Urine RBC (Auto) 10-30 /hpf (0-4) H 04/06/22 03:15 U Hyaline Cast (Auto) 1-5 /lpf (0-5) 04/06/22 03:15 U Epithel Cells (Auto) 0-5 /lpf (0-5) 04/06/22 03:15 Urine Bacteria (Auto) Negative (Negative) 04/06/22 03:15 04/06/22 00:07 Aerobic Blood Culture - Preliminary Blood No growth in Aerobic bottle after 48 hours. Anaerobic Blood Culture - Preliminary No growth in Anaerobic bottle after 48 hours. 04/05/22 23:46 Aerobic Blood Culture - Preliminary Blood No growth in Aerobic bottle after 48 hours. Anaerobic Blood Culture - Preliminary No growth in Anaerobic bottle after 48 hours. 04/06/22 03:15 Urine Culture - Preliminary Urine,Clean Catch No growth - Less than 1,000 colonies/mL, Final report to follow. 04/08/22 04/08/22 07:17 07:16 POC Glucose 130 H 123 H
[2022-04-08 09:48] LABS: Bilirubin Direct 14.1 mg/dl (0-0.2)
[2022-04-08] MEDS: VANCOMYCIN HCL 1,500 MG in SODIUM CHLORIDE 0.9% 500 ML IV SCH ×2 (10:20→20:15)
[2022-04-08] MEDS: FAMOTIDINE 40 MG TABLET PO SCH ×2 (10:24→20:14)
[2022-04-08] MEDS ORDERED: ONDANSETRON INJ 2 MG/ML 2 ML VIAL ONE (13:53)
[2022-04-08] MEDS ORDERED: LIDOCAINE 2% MPF LOCAL 5 ML VIAL INFIL ONE (13:53)
[2022-04-08] MEDS ORDERED: PROPOFOL IV EMULSION 10 MG/ML 20 ML VIAL IV ONE (13:53)
[2022-04-08] MEDS ORDERED: DEXAMETHASONE SOD INJ 4 MG/ML VIAL ONE (13:53)
[2022-04-08] MEDS ORDERED: fentaNYL citrate 100 MCG/2 ML VIAL ONE (13:53)
[2022-04-08] MEDS ORDERED: MIDAZOLAM HCL 1 MG/ML 2ML VIAL ONE (13:53)
[2022-04-08] MEDS ORDERED: ePHEDrine sulfate 50 MG/ML AMP IV PRN (13:58)
[2022-04-08] MEDS ORDERED: fentaNYL citrate 100 MCG/2 ML VIAL IV PRN (13:58)
[2022-04-08] MEDS ORDERED: ONDANSETRON INJ 2 MG/ML 2 ML VIAL IV PRN (13:58)
[2022-04-08] MEDS ORDERED: ATROPINE SULFATE 0.1 MG/ML 10ML SYR IV PRN (13:58)
--- NOTE | 2022-04-08 14:11 | History & Physical Bridge Note ---
Date of Service April 08, 2022 History & Physical Bridge Note I have examined the patient, reviewed the History & Physical and in the interval since the performance of the History & Physical I have noted the following changes of clinical significance: no changes noted ERCP Patient was explained in detail regarding risks, benefits, limitations and alternatives of the above endoscopic procedure. Risks of intravenous sedation used for procedure were also explained. Risks include, but not limited to perforation, bleeding, infection, respiratory distress, cardiac arrest and . Patient is also aware about the possibility of missed lesion. Patient's questions were answered. The patient verbalized understanding the information and agreed to undergo the procedure.
--- NOTE | 2022-04-08 14:31 | Pharmacy Report ---
Pharmacy PK ABX Note - Date of Service April 08, 2022 - Assessment and Plan Assessment 04/08: * Random level 11.9 this AM. ID consulted. ERCP today. Urine culture with no growth. ?possible de-escalation. 04/07: ERCP scheduled for 04/08 at 3PM. Cultures currently negative. Level this morning predicts current dosing will be suptherapeutic. Will increase dose to be within target AUC range 04/06 * 76 year old M receiving Zosyn and vancomycin for prophylaxis for cholangitis (per GI) and oxacillin-resistant coag negative Staph UTI. Patient was prescribed doxycycline as an outpatient for urinary coverage, but this was an incomplete course (? patient possibly only took one dose) * Pertinent microbiologic data includes: urine culture from 03/25 oxacillin- resistant coag negative Staph * SCr improved slightly this AM since admission overnight Plan 04/08: Continue current dose 1500 mg q12H as it is predicted to achieve AUC/VANESSA target dosing Additional levels to be ordered in 2-3 days if vancomycin continued 04/07: adjust dose to 1500 mg q12H. Will obtain random level tomorrow AM to assist with dosing. 04/06: Vancomycin * Loading dose: 1750 mg IV x 1 (already given) * Maintenance dose: 1000 mg IV every 12 hours * Regimen is predicted to achieve target AUC/VANESSA of 400-600 mg/L.hr * Random level ordered for 04/07 w AM labs Pharmacy will continue to follow and will adjust dose/frequency as necessary. Thank you. Pharmacy has transitioned to AUC monitoring for vancomycin. AUC/VANESSA is the preferred PK/PD target and is associated with decreased risk of nephrotoxicity compared to traditional trough targets.
--- NOTE | 2022-04-08 14:49 | Operative Report ---
Post Operative Report Pre & Post Diagnosis Operation Date: 04/08/22 07:00 Pre-Op Diagnosis: LOW BP, OBS JAUNDICE I identified the patient and participated in the time-out.: Yes Procedure Operation Date: 04/08/22 07:00 Actual Procedures p Endoscopic Retrograde Cholangiopancreato(Not Applicable) - Mc Prasad MD Surgeon Mc Prasad MD [employer] Vp None Estimated Blood Loss 0 Findings See Below (Biliary obstruction due to occluded stent, new stent placed) Specimens None Description of Procedure ERCP I attest to the content of the Intraoperative Record and any orders documented therein. Any exceptions are noted below.
--- NOTE | 2022-04-08 14:58 | GI REPORT ---
Patient Name: Karson Church Procedure Date: 04/08/2022 1:33 PM Date of : 1945 Admit Type: Inpatient Age: 76 Gender: Male Attending MD: Mc Prasad MD, Procedure: ERCP Providers: Mc Prasad MD Referring MD: Madi Christie Md Indications: Jaundice, Malignant tumor of the head of pancreas, Bile duct obstruction Medicines: General Anesthesia Complications: No immediate complications. Estimated Blood Loss: Estimated blood loss: none. Procedure: Pre-Anesthesia Assessment: - Prior to the procedure, a History and Physical was performed, and patient medications, allergies and sensitivities were reviewed. The patient's tolerance of previous anesthesia was reviewed. - The risks and benefits of the procedure and the sedation options and risks were discussed with the patient. All questions were answered and informed consent was obtained. - Patient identification and proposed procedure were verified prior to the procedure by the physician and the nurse. The procedure was verified in the procedure room. - Pre-procedure physical examination revealed no contraindications to sedation. After obtaining informed consent, the scope was passed under direct vision. Throughout the procedure, the patient's blood pressure, pulse, and oxygen saturations were monitored continuously. The Duodenoscope was introduced through the mouth, and advanced to the duodenum and used to inject contrast into the bile duct. The ERCP was accomplished without difficulty. The patient tolerated the procedure well. Findings: A baseball scout film of the abdomen was obtained. Surgical clips, consistent with a previous cholecystectomy, were seen in the area of the right upper quadrant of the abdomen. A biliary stent was visible on the baseball scout film. The esophagus was successfully intubated under direct vision. The scope was advanced to a normal major papilla in the descending duodenum without detailed examination of the pharynx, larynx and associated structures, and upper GI tract. The upper GI tract was grossly normal. One bare metal biliary stent originating in the common bile duct was emerging from the major papilla. The stent was visibly occluded. A 0.035 inch angled standard wire was passed into the biliary tree. The 8.5 mm balloon was passed over the guidewire and the bile duct was then deeply cannulated. Contrast was injected. I personally interpreted the bile duct images. Ductal flow of contrast was adequate. Image quality was adequate. Contrast extended to the main bile duct. Opacification of the entire biliary tree except for the gallbladder was successful. The maximum diameter of the ducts was 15 mm. The lower third of the main bile duct contained a single severe stenosis. One 10 mm by 8 cm covered metal biliary stent was placed into the common bile duct. Bile flowed through the stent. The stent was in good position. Dilation of the common bile duct with a 6 mm balloon dilator was successful. Impression: - One visibly occluded stent from the common bile duct due to tumor ingrowth was seen in the major papilla. This is causing a distal biliary obstruction. - One covered metal biliary stent was placed into the common bile duct in the uncovered stent. Recommendation: - Return patient to hospital [facility]oya for ongoing care. - Monitor LFTs. - If no improvement in LFTs then obtain a CT scan abdomen to r/o liver metastasis. - If this stent occludes again in the future then will consider an EUS guided Hepaticogastrostomy stent. Mc Prasad MD 04/08/2022 2:57:45 PM This report has been signed electronically. Note Initiated On: 04/08/2022 1:33 PM Number of Addenda: 0 I attest to the content of the Intraoperative Record and orders documented therein, exceptions below {[id number]}
--- NOTE | 2022-04-08 15:06 | Fluoroscopy Report ---
[place] ERCP biliary ductal CLINICAL HISTORY: CHECK DUCTS TECHNIQUE: 8 views were obtained with the C-arm in the OR with the above procedure. Total fluoroscopy time was 53.2 seconds. Radiation dose was 46.3 mGy. Comparison: None available at the time of this dictation. FINDINGS/IMPRESSION: Intraoperative images were obtained of ERCP. Please correlate with intraoperative fluoroscopy and operative report. ACT 112: Negative or not required by law. Electronically signed by: Oc Palacio M.D. 04/08/2022 3:05 PM
--- NOTE | 2022-04-08 15:17 | Anesthesiology Progress Note ---
Date of Service April 08, 2022 Anesthesia Post Procedure Vital Signs Vital Signs: Temp Pulse Pulse Pulse Resp BP BP 04/08/22 15:05 36.6 C 78 22 90/58 L 04/08/22 15:10 36.6 C 74 20 90/58 L 04/08/22 15:00 36.6 C 78 21 82/50 L 04/08/22 13:06 36.2 C L 89 28 H 137/82 04/08/22 10:36 36.7 C 79 18 119/71 04/08/22 07:36 36.7 C 73 20 132/80 04/08/22 07:04 80 04/08/22 04:17 37.0 C 67 18 150/89 H 04/07/22 22:30 75 04/07/22 22:47 36.6 C 72 18 129/70 04/07/22 19:32 36.7 C 75 18 155/89 H 04/07/22 16:13 67 04/07/22 15:48 36.5 C 67 20 147/81 H Pulse Ox O2 Del Method 04/08/22 15:05 95 Room Air 04/08/22 15:10 93 Room Air 04/08/22 15:00 95 Room Air 04/08/22 13:06 94 Room Air 04/08/22 10:36 95 Room Air 04/08/22 07:36 94 Room Air 04/08/22 07:04 04/08/22 04:17 95 Room Air 04/07/22 22:30 04/07/22 22:47 96 Room Air 04/07/22 19:32 94 Room Air 04/07/22 16:13 04/07/22 15:48 92 Room Air Pain Intensity Lower Medial Back: Pain Intensity: 5 Bilateral Abdomen: Pain Intensity: 5 Transfer of Care Handoff Completed per policy Notes Mental Status: alert / awake / arousable and participated in evaluation Patient Amnestic to Procedure: Yes Nausea / Vomiting: adequately controlled Pain: adequately controlled Airway Patency, RR, SpO2: stable & adequate BP & HR: stable & adequate Hydration State: stable & adequate Anesthetic Complications: no major complications apparent and Pt Satisfied with anesthetic care
--- NOTE | 2022-04-08 17:08 | Hospitalist Progress Note ---
Date of Service April 08, 2022 Assessment & Plan (1) Hypotension: Plan: Complicated urinary tract infection H/O BPH Urine Cx from 03/25: oxacillin resistant coagulase-negative staph species:Incomplete treatment with doxycycline Blood, urine culture negative to date Lactic acid levels normalized with IV fluids Empirically on vancomycin, Zosyn ID consulted--pending input Repeat cultures negative to date Obstructive jaundice Secondary to biliary tract obstruction due to progressive pancreatic cancer S/P Chemotherapy Suspected Cholangitis --CT KUB:Large amount of residual barium within the colon and rectum from upper GI performed yesterday. CT in several days once the barium has passed could be obtained. --Gall Bladder USD:Redemonstration of the patient's known 4 cm pancreatic head mass. Bile duct dilatation with an indwelling common bile duct stent which appears patent. Follows with Dr. Maged Adler oncology as outpatient --S/P ERCP on 04/08/22: One visibly occluded stent from the common bile duct due to tumor ingrowth was seen in the major papula. This is causing distal biliary obstruction. One covered metal biliary stent was placed into the common bile duct and the uncovered stent. --Continue Iv antibiotics for now Pain control Avoid nephrotoxic agents as able Appreciate GI Input Poor prognosis Monitor LFTs Restarted diet Monitor LFTs If no improvement of LFTs, will obtain CT scan If recurrence of stent occlusion, will likely need EUS guided hepaticogastrostomy stent Needs follow-up with GI upon discharge DM II HbA1C: 6.5 Hold oral meds Continue Insulin per protocol Monitor BGs Other Chronic conditions CAD PSVT HLP Tobacco/alcohol abuse COPD No signs of exacerbation continue home meds DVT Px: Lovenox SQ Code Status Full code Admission and Anticipated Discharge Date Admission Date: April 06, 2022 Subjective Patient is seen and examined at bedside Persistent abdominal pain Plan for ERCP today No new complaints Denies any chest pain, dyspnea, dizziness, nausea, vomiting Review of Systems Review of Systems: All systems reviewed & are unremarkable except as noted in Subjective Physical Exam Physical Exam: Physical Exam: Vitals signs as noted above General Appearance:Moderately built and nourished, chronically appearing, no apparent distress Head: normocephalic, Atraumatic Eyes: normal inspection, EOMI,+Icteric Neck: supple, Trachea midline Respiratory/Chest: Normal breath sounds, CTA, No accessory muscle use Cardiovascular: S1, S2, No murmur Abdomen/GI:Soft, distended, generalized tender, Bowel sounds present Extremities/Musculoskeletal:normal inspection, Trace edema Neurologic/Psych:AAOX3, grossly no focal neurological deficits Skin: normal color, warm, +Jaundice Results & Data Results & Data ([facility]) Vital Signs (Past 12 Hours) Vital Signs Temp Pulse Pulse Pulse Resp BP BP 04/08/22 16:08 36.6 C 73 19 106/64 04/08/22 15:15 36.5 C 74 21 103/63 04/08/22 15:05 36.6 C 78 22 90/58 L 04/08/22 15:10 36.6 C 74 20 90/58 L 04/08/22 15:00 36.6 C 78 21 82/50 L 04/08/22 13:06 36.2 C L 89 28 H 137/82 04/08/22 10:36 36.7 C 79 18 119/71 04/08/22 07:36 36.7 C 73 20 132/80 04/08/22 07:04 80 Pulse Ox O2 Del Method 04/08/22 16:08 93 Room Air 04/08/22 15:15 93 Room Air 04/08/22 15:05 95 Room Air 04/08/22 15:10 93 Room Air 04/08/22 15:00 95 Room Air 04/08/22 13:06 94 Room Air 04/08/22 10:36 95 Room Air 04/08/22 07:36 94 Room Air 04/08/22 07:04 Laboratory Results Short CBC 04/08/22 Range/Units 06:33 WBC 7.94 (4.8-10.8) K/ul Hgb 12.1 L (14.0-18.0) g/dl Hct 32.4 L (42.0-52.0) % Plt Count 183 (130-400) K/uL BMP 04/08/22 06:33 Sodium 133 L Potassium 3.8 Chloride 101 Carbon Dioxide 25 BUN 11 Creatinine 0.82 Glucose 132 H Calcium 8.8 Liver Function 04/08/22 Range/Units 06:33 Total Bilirubin 20.6 H (0.2-1.0) mg/dl Direct Bilirubin 14.1 H (0-0.2) mg/dl AST 196 H (13-39) U/L ALT 176 H (7-52) U/L Alkaline Phosphatase 865 H (34-104) U/L Albumin 3.1 L (3.4-5.0) gm/dl (1) Hypotension Hypotension type: unspecified hypotension type Qualified Code(s): I95.9 - Hypotension, unspecified
[2022-04-08] MEDS: FOLIC ACID 400 MCG TAB PO SCH (17:11)
[2022-04-08] MEDS: POLYETHYLENE (MIRALAX) 17 GM PACK PO SCH (20:15)
[2022-04-09] MEDS: PIPERACILLIN/TAZOBACTAM 3.375 GM in DEXTROSE 5% 100 ML IV SCH (05:58)
[2022-04-09 06:37] LABS: Hematocrit (blood only) 32.6 % (42.0-52.0); Hemoglobin 11.7 g/dl (14.0-18.0); Mean Corpuscular Hemoglobin 31.7 pg (25.0-34.0); Mean Corpuscular Hgb Conc 35.9 g/dL (32.0-36.0); Mean Corpuscular Volume 88.3 fL (80.0-100.0); Mean Platelet Volume 10.7 fL (9.4-12.4); Platelet Count 212 K/uL (130-400); RDW Coefficient of Variation 17.4 % (11.5-14.5); RDW Standard Deviation 55.2 fL (36.4-46.3); Red Blood Count 3.69 M/uL (4.70-6.10); White Blood Count 7.46 K/ul (4.8-10.8)
[2022-04-09 07:01] LABS: Albumin Level 3.1 gm/dl (3.4-5.0); BUN Creatinine Ratio 16.7 (10-20); Bilirubin Direct 6.2 mg/dl (0-0.2); Calcium 8.9 mg/dl (8.5-10.1); Est GFR (African American) 89.3 ml/min; Potassium 4.1 mmol/L (3.5-5.1); Total Protein 6.5 gm/dl (6.0-8.3)
[2022-04-09] MEDS: busPIRone 7.5 MG TAB PO SCH (07:08)
[2022-04-09] MEDS: ISOSORBIDE MONO EXTENDED REL 30 MG TABCR PO SCH (07:08)
[2022-04-09] MEDS: PANTOprazole 40 MG TAB PO SCH (07:09)
[2022-04-09] MEDS: TAMSULOSIN HCL 0.4 MG CAP PO SCH (07:09)
[2022-04-09] MEDS: FINASTERIDE 5 MG TAB PO SCH (07:09)
[2022-04-09] MEDS: ENOXAPARIN INJ 40 MG/0.4 ML SYR SQ SCH (07:13)
[2022-04-09] MEDS: INSULIN ASPART PER UNIT SC SCH ×2 (08:36→11:54)
[2022-04-09] MEDS: LANTUS PER UNIT CHARGE SQ SCH (08:36)
[2022-04-09] MEDS: VANCOMYCIN HCL 1,500 MG in SODIUM CHLORIDE 0.9% 500 ML IV SCH (10:11)
[2022-04-09] MEDS: FAMOTIDINE 40 MG TABLET PO SCH (11:14)
--- NOTE | 2022-04-09 12:40 | Hospitalist Progress Note ---
Date of Service April 09, 2022 Assessment & Plan (1) Hypotension: Plan: Complicated urinary tract infection H/O BPH Urine Cx from 03/25: oxacillin resistant coagulase-negative staph species:Incomplete treatment with doxycycline Blood, urine culture negative to date Lactic acid levels normalized with IV fluids Empirically on vancomycin>> Transition to PO antibiotic upon discharge ID consulted Repeat cultures negative Obstructive jaundice Secondary to biliary tract obstruction due to progressive pancreatic cancer S/P Chemotherapy Suspected Cholangitis --CT KUB:Large amount of residual barium within the colon and rectum from upper GI performed yesterday. CT in several days once the barium has passed could be obtained. --Gall Bladder USD:Redemonstration of the patient's known 4 cm pancreatic head mass. Bile duct dilatation with an indwelling common bile duct stent which appears patent. Follows with Dr. Maged Adler oncology as outpatient --S/P ERCP on 04/08/22: One visibly occluded stent from the common bile duct due to tumor ingrowth was seen in the major papula. This is causing distal biliary obstruction. One covered metal biliary stent was placed into the common bile duct and the uncovered stent. -- Received IV Zosyn empirically Pain control Avoid nephrotoxic agents as able Appreciate GI Input Poor prognosis Tolerating diet LFTs improving Discussed with GI today: No indication for antibiotics If recurrence of stent occlusion, will likely need EUS guided hepaticogastrostomy stent Needs follow-up with GI upon discharge DM II HbA1C: 6.5 Hold oral meds Continue Insulin per protocol Monitor BGs Other Chronic conditions CAD PSVT HLP Tobacco/alcohol abuse COPD No signs of exacerbation continue home meds DVT Px: Lovenox SQ Code Status Full code Disposition Home Admission and Anticipated Discharge Date Admission Date: April 06, 2022 Subjective Patient is seen and examined at bedside Abdominal pain much improved No new complaints Denies any chest pain, dyspnea, dizziness, nausea, vomiting Discussed with GI today Review of Systems Review of Systems: All systems reviewed & are unremarkable except as noted in Subjective Physical Exam Physical Exam: Physical Exam: Vitals signs as noted above General Appearance:Moderately built and nourished, chronically appearing, no apparent distress Head: normocephalic, Atraumatic Eyes: normal inspection, EOMI,+Icteric Neck: supple, Trachea midline Respiratory/Chest: Normal breath sounds, CTA, No accessory muscle use Cardiovascular: S1, S2, No murmur Abdomen/GI:Soft, distended, non tender, Bowel sounds present Extremities/Musculoskeletal:normal inspection, Trace edema Neurologic/Psych:AAOX3, grossly no focal neurological deficits Skin: normal color, warm, +Jaundice Results & Data Results & Data ([facility]) Vital Signs (Past 12 Hours) Vital Signs Temp Pulse Pulse Resp BP Pulse Ox O2 Del Method 04/09/22 11:15 37.0 C 64 16 127/78 94 Room Air 04/09/22 07:30 36.8 C 64 16 142/85 H 94 Room Air 04/09/22 06:55 63 04/09/22 04:12 36.7 C 67 18 129/86 94 Room Air Laboratory Results Short CBC 04/09/22 Range/Units 05:31 WBC 7.46 (4.8-10.8) K/ul Hgb 11.7 L (14.0-18.0) g/dl Hct 32.6 L (42.0-52.0) % Plt Count 212 (130-400) K/uL BMP 04/09/22 05:31 Sodium 135 L Potassium 4.1 Chloride 102 Carbon Dioxide 28 BUN 16 Creatinine 0.96 Glucose 144 H Calcium 8.9 Liver Function 04/09/22 Range/Units 05:31 Total Bilirubin 11.0 H (0.2-1.0) mg/dl Direct Bilirubin 6.2 H (0-0.2) mg/dl AST 117 H (13-39) U/L ALT 147 H (7-52) U/L Alkaline Phosphatase 791 H (34-104) U/L Albumin 3.1 L (3.4-5.0) gm/dl (1) Hypotension Hypotension type: unspecified hypotension type Qualified Code(s): I95.9 - Hypotension, unspecified
--- NOTE | 2022-04-09 12:51 | Discharge Summary ---
Date of Service April 09, 2022 Admission HPI Per Admitting Provider History obtained from patient and records. Medical history significant for CAD, PSVT, COPD, hypertension, hyperlipidemia, pancreatic cancer status post chemotherapy, DM 2 on oral medications, GERD, chronic anemia (baseline hemoglobin 11-12), BPH, past tobacco/alcohol abuse. Patient found to have pancreatic mass on outpatient CT abdomen pelvis March 2020. Pancreatic adenocarcinoma on biopsy last May 2020. Nonspecific sclerotic focus proximal right femur as per outpatient oncology note. Chemotherapy on hold since January 2022 after [facility] confinement last January 2022 for diverticulitis. Patient went for outpatient upper GI series x-rays with barium 24 a.m. as per [facility] specialist request on outpatient follow-up visit. 2 weeks ago, patient seen at [facility] urologist office for follow-up visit for BPH. Patient complaining of dysuria symptoms. Urine CS grew coagulase negative staph species, oxacillin resistant. Patient only able to take first dose of Doxycycline course prescribed by provider yesterday. Patient noted worsening generalized abdominal discomfort over the last 4 days. Associated jaundice and weight loss. No constipation, diarrhea symptoms. Some bloating without emesis. No chest pain, no SOB, No fever, no chills. Patient seen at [facility] oncologist office on follow-up visit 2 days ago. Abnormal lab work noted Total bilirubin 10.3, AST 214, ALT 194, alk phos 730, CA 19-9 level markedly up at 2100. Patient directed to ER by oncologist. SBP 90s upon arrival at the ER. IV Zosyn administered at the ER. 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 Admission Exam Per Admitting Provider GENERAL: Comfortable, pleasant, slightly hard of hearing, no respiratory distress SKIN: Jaundiced, warm HEENT: Pale palpebral conjunctivae, no ptosis, dry buccal mucosa NECK : Supple, no tenderness CHEST : CTA, no tenderness HEART : RRR, no obvious murmurs ABDOMEN: Abdominal distention, epigastric tenderness EXTREMITIES : Minimal LE swelling, no LE tenderness, no other conspicuous deformities noted NEUROLOGIC : Coherent, no facial asymmetry, no other gross focality Principal Diagnosis Obstructive jaundice Pancreatic cancer Urinary tract infection Discharge Data Allergies Allergy/AdvReac Type Severity Reaction Status Date / Time aspirin Allergy Unknown stomach Verified 04/05/22 21:25 upset erythromycin base Allergy Unknown upset Verified 04/05/22 21:25 stomach Consultations 04/05/22 23:22 ED Decision to Admit Stat 04/06/22 01:31 Consult Gastroenterology Routine 04/06/22 02:10 Consult Infectious Diseases Routine Procedures Performed Operation Date: 04/08/22 07:00 Actual Procedures p Endoscopic Retrograde Cholangiopancreato(Not Applicable) - Mc Prasad MD Laboratory Results WBC 7.46 K/ul (4.8-10.8) 04/09/22 05:31 RBC 3.69 M/uL (4.70-6.10) L 04/09/22 05:31 Hgb 11.7 g/dl (14.0-18.0) L 04/09/22 05:31 Hct 32.6 % (42.0-52.0) L 04/09/22 05:31 MCV 88.3 fL (80.0-100.0) 04/09/22 05:31 MCH 31.7 pg (25.0-34.0) 04/09/22 05:31 MCHC 35.9 g/dL (32.0-36.0) 04/09/22 05:31 RDW Std Deviation 55.2 fL (36.4-46.3) H 04/09/22 05:31 RDW Coeff of Dave 17.4 % (11.5-14.5) H 04/09/22 05:31 Plt Count 212 K/uL (130-400) 04/09/22 05:31 MPV 10.7 fL (9.4-12.4) 04/09/22 05:31 Immature Gran % (Auto) 0.5 % 04/06/22 05:31 Neut % (Auto) 78.7 % 04/06/22 05:31 Lymph % (Auto) 8.6 % 04/06/22 05:31 [place] % (Auto) 9.4 % 04/06/22 05:31 Eos % (Auto) 2.3 % 04/06/22 05:31 Baso % (Auto) 0.5 % 04/06/22 05:31 Neut # (Auto) 6.30 K/uL (1.40-6.50) 04/06/22 05:31 Lymph # (Auto) 0.69 K/uL (1.2-3.4) L 04/06/22 05:31 [place] # (Auto) 0.75 K/uL (0.11-0.59) H 04/06/22 05:31 Eos # (Auto) 0.18 K/uL (0-0.50) 04/06/22 05:31 Baso # (Auto) 0.04 K/uL (0-0.2) 04/06/22 05:31 Immature Gran # (Auto) 0.04 K/uL (0.01-0.20) 04/06/22 05:31 PT 12.4 Seconds (9.0-12.0) H 04/05/22 16:07 INR 1.2 (0.9-1.1) H 04/05/22 16:07 Sodium 135 mmol/L (136-145) L 04/09/22 05:31 Potassium 4.1 mmol/L (3.5-5.1) 04/09/22 05:31 Chloride 102 mmol/L (98-107) 04/09/22 05:31 Carbon Dioxide 28 mmol/L (21-32) 04/09/22 05:31 Anion Gap 5 (3-11) 04/09/22 05:31 BUN 16 mg/dl (6-23) 04/09/22 05:31 Creatinine 0.96 mg/dl (0.6-1.4) 04/09/22 05:31 Est Cr Clr Drug Dosing 73.0 ml/min 04/09/22 05:31 Est GFR ( Amer) 89.3 ml/min 04/09/22 05:31 Est GFR (Non-Af Amer) 77.0 ml/min 04/09/22 05:31 BUN/Creatinine Ratio 16.7 (10-20) 04/09/22 05:31 Glucose 144 mg/dl (70-99(Fasting)) H 04/09/22 05:31 POC Glucose 125 mg/dl (70-99) H 04/09/22 11:31 Estimat Average Glucose 140 mg/dl 04/06/22 00:07 Hemoglobin A1c 6.5 % (4.5-5.6) H 04/06/22 00:07 Lactate 1.5 mmol/L (0.4-2.0) 04/06/22 05:31 Calcium 8.9 mg/dl (8.5-10.1) 04/09/22 05:31 Magnesium 1.7 mg/dl (1.7-2.4) 04/07/22 06:42 Total Bilirubin 11.0 mg/dl (0.2-1.0) H 04/09/22 05:31 Direct Bilirubin 6.2 mg/dl (0-0.2) H 04/09/22 05:31 AST 117 U/L (13-39) H 04/09/22 05:31 ALT 147 U/L (7-52) H 04/09/22 05:31 Alkaline Phosphatase 791 U/L (34-104) H 04/09/22 05:31 Total Protein 6.5 gm/dl (6.0-8.3) 04/09/22 05:31 Albumin 3.1 gm/dl (3.4-5.0) L 04/09/22 05:31 Globulin 3.3 gm/dl (2.5-4.0) 04/06/22 05:31 Albumin/Globulin Ratio 1.1 (0.9-2) 04/06/22 05:31 Lipase U/L (11-82) 04/05/22 16:07 Urine Color Dark Yellow 04/06/22 03:15 Urine Appearance Clear (Clear) 04/06/22 03:15 Urine pH 5.5 (4.5-7.5) 04/06/22 03:15 Ur Specific [place] 1.030 (1.000-1.030) 04/06/22 03:15 Urine Protein Trace (Negative) H 04/06/22 03:15 Urine Glucose (UA) Negative (Negative) 04/06/22 03:15 Urine Ketones Trace (Negative) H 04/06/22 03:15 Urine Blood 2+ (Negative) H 04/06/22 03:15 Urine Nitrite Positive (Negative) A 04/06/22 03:15 Urine Bilirubin 3+ (Negative) H 04/06/22 03:15 Urine Urobilinogen Negative (Negative) 04/06/22 03:15 Ur Leukocyte Esterase 1+ (Negative) H 04/06/22 03:15 Urine WBC (Auto) 1-5 /hpf (0-5) 04/06/22 03:15 Urine RBC (Auto) 10-30 /hpf (0-4) H 04/06/22 03:15 U Hyaline Cast (Auto) 1-5 /lpf (0-5) 04/06/22 03:15 U Epithel Cells (Auto) 0-5 /lpf (0-5) 04/06/22 03:15 Urine Bacteria (Auto) Negative (Negative) 04/06/22 03:15 Urine Yeast Not Reportable 04/06/22 03:15 Random Vancomycin 11.9 mcg/ml (10-20) 04/08/22 06:33 SARS-CoV-2, RNA, NAAT NEGATIVE (NEGATIVE) 04/05/22 Unknown Impressions 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 FINDINGS: A large amount of barium within the colon and rectum is noted. Streak artifact from this barium would significantly compromise visualization of the abdomen and pelvis. A CT of the abdomen and pelvis could be obtained in several days once the barium has passed. No evidence for a bowel obstruction. IMPRESSION: Large amount of residual barium within the colon and rectum from upper GI performed yesterday. CT in several days once the barium has passed could be obtained. ACT 112: Negative or not required by law. Electronically signed by: Guilherme Sanchez M.D. 04/05/2022 5:17 PM Gallbladder Ultrasound 04/05/22 19:02 ABDOMINAL ULTRASOUND, RIGHT UPPER QUADRANT HISTORY: Pancreatic cancer, jaundice eval stent/duct obstru. COMPARISON: Abdomen and pelvis CT 07/17/2021. FINDINGS: Pancreas: There is a 4 cm hypoechoic mass within the pancreatic head corresponding to the patient's known pancreatic malignancy. Liver: No hepatic masses. Intrahepatic bile duct dilatation is noted. The main portal vein is patent. Gallbladder: The gallbladder is surgically absent. CBD: Dilated up to 1.6 cm. The indwelling stent appears patent. Right kidney: Right renal cysts are again noted. IMPRESSION: 1. Redemonstration of the patient's known 4 cm pancreatic head mass. 2. Bile duct dilatation with an indwelling common bile duct stent which appears patent. ACT 112: Negative or not required by law. Electronically signed by: Slava Murray M.D. 04/06/2022 7:57 AM Endo Retro Cholangiopancreatogram 04/08/22 15:00 [place] ERCP biliary ductal CLINICAL HISTORY: CHECK DUCTS TECHNIQUE: 8 views were obtained with the C-arm in the OR with the above proced ure. Total fluoroscopy time was 53.2 seconds. Radiation dose was 46.3 mGy. Comparison: None available at the time of this dictation. FINDINGS/IMPRESSION: Intraoperative images were obtained of ERCP. Please correlate with intraoperative fluoroscopy and operative report. ACT 112: Negative or not required by law. Electronically signed by: Oc Palacio M.D. 04/08/2022 3:05 PM Ordered Studies 04/05/22 16:53 CT KUB collar worker Stat 04/05/22 19:02 US gallbladder Urgent 04/08/22 15:00 FL ERCP biliary ductal Routine Hospital Course (1) Hypotension: Complicated urinary tract infection H/O BPH Urine Cx from 03/25: oxacillin resistant coagulase-negative staph specie s:Incomplete treatment with doxycycline Blood, urine culture negative to date Lactic acid levels normalized with IV fluids Empirically on vancomycin>> Transition to PO antibiotic upon discharge ID consulted Repeat cultures negative Obstructive jaundice Secondary to biliary tract obstruction due to progressive pancreatic cancer S/P Chemotherapy Suspected Cholangitis --CT KUB:Large amount of residual barium within the colon and rectum from upper GI performed yesterday. CT in several days once the barium has passed could be obtained. --Gall Bladder USD:Redemonstration of the patient's known 4 cm pancreatic head mass. Bile duct dilatation with an indwelling common bile duct stent which appears patent. Follows with Dr. Maged Adler oncology as outpatient --S/P ERCP on 04/08/22: One visibly occluded stent from the common bile duct due to tumor ingrowth was seen in the major papula. This is causing distal biliary obstruction. One covered metal biliary stent was placed into the common bile duct and the uncovered stent. -- Received IV Zosyn empirically Pain control Avoid nephrotoxic agents as able Appreciate GI Input Poor prognosis Tolerating diet LFTs improving Discussed with GI today: No indication for antibiotics If recurrence of stent occlusion, will likely need EUS guided hepaticogastrostomy stent Needs follow-up with GI upon discharge DM II HbA1C: 6.5 Hold oral meds Continue Insulin per protocol Monitor BGs Other Chronic conditions CAD PSVT HLP Tobacco/alcohol abuse COPD No signs of exacerbation continue home meds DVT Px: Lovenox SQ Code Status Full code Disposition Home Total Time Total Time Spent Total Time Spent (In Minutes): 57 minutes Discharge Plan Discharge Items Patient Disposition: Home - Self-Care Reason For Visit: LOW BP, OBS JAUNDICE Discharge Diagnosis: Obstructive jaundice Pancreatic cancer Urinary tract infection Activity: Per Instructions section Exercise/Sports: Gradually increase as tolerated Non-emergency contact: Primary Care Provider and Jewelry Engraver Call non-emergency contact if: you have any medication questions, your symptoms worsen, your pain is concerning for you and you have a fever Follow-up/Referrals: [facility],Hospital [Primary Care Provider] - Diet: Carb Consistent or DM2 Addtl Attending Provider Instructions: Follow-up with your primary care physician at [facility] in 1 week as advised Follow-up with your bituminous distributor operator Dr. Prasad as recommended --- Blood cultures are pending at the time of discharge. Follow-up with your physician for results ---Complete antibiotic course Bactrim for 3 more days as prescribed for urinary tract infection. (Start taking antibiotic from 04/10/2022) Seek immediate medical attention if your symptoms reoccur or worsen Please take all medications as instructed on discharge list below. Please call if you have any questions or problems. You can reach a [facility] hospitalist on duty at [facility] 24 hours a day by calling [phone] Pending Studies at Discharge: Yes Studies:: Blood cultures Stand-Alone Forms: My [facility], Smoking Cessation Medications and DC Order Prescriptions: New sulfamethoxazole-trimethoprim [Bactrim] 400-80 mg tablet 1 tab PO BID 3 Days Qty: 6 0RF Rx Instructions: Start taking from 04/10/2022 Continued buspirone 5 mg tablet 7.5 mg PO BID metformin 500 mg tablet 500 mg PO BID famotidine 40 mg tablet 40 mg PO BID Rx Instructions: take @ lunch & hs tamsulosin [Flomax] 0.4 mg Capsule 0.4 mg PO DAILY pantoprazole 40 mg tablet,delayed release (DR/EC) 40 mg PO BID isosorbide mononitrate 10 mg Tablet 30 mg PO QAM polyethylene glycol 3350 17 gram/dose powder 17 g PO HS finasteride 5 mg tablet 5 mg PO DAILY folic acid 800 mcg tablet 800 mcg PO DAILY oxycodone 5 mg tablet 5 mg PO Q4 PRN (Reason: Pain) Discontinued doxycycline hyclate 100 mg Tablet 100 mg PO BID Discharge Orders: Discharge Order (Routine); Ordered 04/09/22 Ordered By: Madi Birmingham/Other Patient Handouts: Managing Type 2 Diabetes Admission Data Admit Date/Time: 04/06/22 00:12 Attending Provider: Madi Goldman Admit Provider: Dante Hickey Primary Care Provider: [facility] Other Providers: Dante Hickey ; James Richardson ; Peterson De Leon ; Sameera Fernando ; Jarocho Garcia I. ; Isaac Tenorio II ; Joann Hoskins ; Arvind Solitario ; Jens Evangelista ; Juan Pablo Vincent
== END 2022-04-09 15:13 | disposition home or self-care (01) | DRG 435 ==
LOC: ED 15:38 → 2W 04-06 00:12